=== PATIENT | male | born 1950 | race Caucasian/White ===

== ENCOUNTER 2017-12-16 17:41 | Emergency (ER) | payer MEDICARE ==
[2017-12-16 17:48] VITALS: PULSE 71
[2017-12-16] MEDS ORDERED: Sodium Chloride 0.9% 1000 ML 1,000 ML IV STA (17:55)
[2017-12-16] MEDS ORDERED: Sodium Chloride 0.9% 1000 ML 1,000 ML ONE (18:01)
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
[2017-12-16 18:21] LABS: BASOPHIL % 0.4 % (0.0-0.4); Basophil (Absolute #) 0.04 (0-0.4); Eosinophil (Absolute #) 0.19 (0-0.5); Granulocyte Absolute (ANC) 7.24 (1.4-6.9); Granulocytes % 74.6 % (36.0-66.0); Hematocrit 44.4 % (42-50); Hemoglobin 15.3 gm/dl (12.5-18.0); Lymphocyte (Absolute #) 1.32 (1.0-4.6); Lymphocytes % 13.6 % (24.0-44.0); Mean Cell Volume 88.3 fl (78-100); Mean Corpuscular Hemoglobin 30.4 pg (26-32); Mean Corpuscular Hgb Concent. 34.5 g/dl (32-36); Mean Platelet Volume 10.4 fl (6-9.5); Monocyte (Absolute #) 0.91 (0.0-1.3); Monocytes % 9.4 % (0.0-12.0); Platelet Count 155 K/mm3 (150-450); Red Blood Count 5.03 M/mm3 (4.1-5.6); Red Cell Distribution Width 12.4 % (11.5-14.0); White Blood Count 9.7 K/mm3 (4.0-10.5)
[2017-12-16 18:32] LABS: Appearance CLEAR (CLEAR); Bilirubin NEGATIVE (NEGATIVE); Blood 50 Ery/ul (0-5); Glucose 250 mg/dL (NEGATIVE); Ketones NEGATIVE (NEGATIVE); Leukocyte Esterase NEGATIVE (NEGATIVE); Nitrite NEGATIVE (NEGATIVE); Protein,Urine Dip NEGATIVE (Negative); Specific Gravity 1.015 (1.005-1.025); Urobilinogen NORMAL mg/dL (0-1)
[2017-12-16 18:33] LABS: RBC 0-2 /HPF (0-2); WBC 0-2 /HPF (0-5)
[2017-12-16] MEDS ORDERED: TYLENOL 325 MG PO STA (18:42)
[2017-12-16 18:43] LABS: ALBUMIN 4.3 g/dL (3.5-5.0); ALKALINE PHOSPHATASE 53 U/L (38-126); ANION GAP 13.7 MEQ/L (5-15); BLOOD UREA NITROGEN 16 mg/dL (9-20); CHLORIDE 105 mmol/L (98-107); Calcium 9.1 mg/dL (8.4-10.2); Carbon Dioxide 24 mmol/L (22-30); Glucose 211 mg/dL (74-106); LIPASE 153 U/L (23-300); SGOT/AST 25 U/L (17-59); SGPT/ALT 28 U/L (0-50); SODIUM 138 mmol/L (137-145); Total Protein 7.1 g/dL (6.3-8.2)
[2017-12-16] MEDS ORDERED: TYLENOL 325 MG ONE (18:44)
[2017-12-16 21:44] VITALS: BP 155/103; O2SAT 94
[2017-12-16] MEDS ORDERED: NORCO 5/325 MG PO ONE (22:55)
[2017-12-16] MEDS ORDERED: NORCO 5/325 MG ONE (23:00)
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
== END 2017-12-16 23:25 | disposition home or self-care (01) ==
LOC: ED 17:41
DX: S52.612A Displaced fracture of left ulna styloid process, initial encounter for closed fracture (principal); S00.01XA Abrasion of scalp, initial encounter; S60.812A Abrasion of left wrist, initial encounter; S80.01XA Contusion of right knee, initial encounter; S70.311A Abrasion, right thigh, initial encounter; S40.212A Abrasion of left shoulder, initial encounter; V09.9XXA Pedestrian injured in unspecified transport accident, initial encounter; Y93.H2 Activity, gardening and landscaping; Y92.007 Garden or yard of unspecified non-institutional (private) residence as the place of occurrence of the external cause; Z79.01 Long term (current) use of anticoagulants; Z79.899 Other long term (current) drug therapy
CPT/HCPCS: 36000; 36415; 70450; 71260; 72125; 73030; 73110; 73552; 74177; 76376; 80053; 81000; 83690; 84484; 85025; 93005; 96360; 99285; 99291; 99292; L3908; A9270-GY

== ENCOUNTER 2023-05-27 21:19 | Observation (INO) | payer MEDICARE ==
--- NOTE | 2023-05-27 21:22 | ERPHSYRPT ---
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 Patient spouse states that he was showing signs of dementia prior to the stroke 2 weeks ago. Patient has multiple medical problem including hypertension, insulin- dependent diabetes, coronary artery disease with cardiac stents on Plavix and has had multiple strokes in the past. He also has a history of peripheral vascular disease having had carotid artery bypass in the past. Patient recently returned home after suffering a CVA in [place] approximately 2 weeks ago. Malachi morris's spouse provided independent, additional, primary history because the patient is somewhat confused. Patient is awake and alert. However is confused about dates and times and recent family/personal historical events. Patient's states that this patient is becoming more aggressive and more confused since he has been home from [place]. Patient is not recalling how to provide himself with his nighttime insulin dosing. He has been eating what is put before him. Patient denies headache. Patient denies chest pain. Patient denies shortness of breath. He has no abdominal pain. Timing/Duration: today Severity: moderate Character of Deficits: other (Patient intermittently more confused and agitated with his spouse) Baseline/Normal Cognition: alert but confused Current Cognition: alert but confused Baseline Gait: walks w/o assistance Associated Symptoms: confusion, other Allergies/Adverse Reactions: Lnxewql-UBO-BoP Reductase Inhibitor [Pxvnhva-Hcn-Wsp Reductase Inhibitor] Aller gy (Severe, Verified 12/16/17 18:03) Rash Home Medications: Aspirin EC 325 mg [Ecotrin 325 MG] 325 mg PO DAILY 04/25/13 [History] Carvedilol [Coreg 6.25 MG] 6.25 mg PO BID 04/25/13 [History] Famotidine 20 mg [Pepcid 20 MG] 20 mg PO DAILY 04/25/13 [History] Insulin Detemir [Levemir] 15 unit SQ HS 04/25/13 [History] Sennosides/Docusate Sodium [Senokot-S Tablet] 1 each PO BIDPRN PRN 04/25/13 [History] lisinopriL [Zestril] 2.5 mg PO DAILY 04/25/13 [History] Empagliflozin [Jardiance] 10 mg PO DAILY 05/27/23 [History] Spironolactone 25 mg [Aldactone 25 MG] 25 mg PO DAILY 05/27/23 [History] Hx Tetanus, Diphtheria Vaccination/Date Given: Yes Hx Influenza Vaccination/Date Given: No Hx Pneumococcal Vaccination/Date Given: No Travel Risk - International Travel Have you traveled outside of the country in past 3 weeks: No - Coronavirus Screening Are you exhibiting any of the following symptoms?: No Close contact with a COVID-19 positive Pt in past 14-21 Days: No - Review of Systems Constitutional: No Symptoms Eyes: No Symptoms Ears, Nose, & Throat: No Symptoms Respiratory: No Symptoms Cardiac: No Symptoms Abdominal/Gastrointestinal: No Symptoms Genitourinary Symptoms: No Symptoms Musculoskeletal: No Symptoms Skin: No Symptoms Neurological: Other (Confused) Psychological: No Symptoms Endocrine: No Symptoms Hematologic/Lymphatic: No Symptoms Immunological/Allergic: No Symptoms All Other Systems: Reviewed and Negative - Past Medical History Pertinent Past Medical History: Yes Neurological History: Peripheral Neuropathy, Stroke ENT History: No Pertinent History Cardiac History: Angina, Coronary Artery Disease, High Cholesterol, Hypertension, Myocardial Infarction (AR) Respiratory History: Asthma Endocrine Medical History: Diabetes Type II Musculoskeletal History: Arthritis, Fractures GI Medical History: No Pertinent History History: No Pertinent History Psycho-Social History: No Pertinent History Male Reproductive Disorders: No Pertinent History Other Medical History: R TKA, 3 stints. 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) Significant Family History: no pertinent family hx - Nursing Vital Signs Nursing Vital Signs: Initial Vital Signs Temperature 97.6 F 05/27/23 21:36 Pulse Rate 77 05/27/23 21:36 Respiratory Rate 18 05/27/23 21:36 Blood Pressure 164/87 05/27/23 21:36 O2 Sat by Pulse Oximetry 98 05/27/23 21:36 Pain Scale Pain Intensity 0 - [place] Coma Scale Best Eye Response ([place]): (4) open spontaneously Best Verbal Response ([place]): (4) confused conversation Best Motor Response ([place]): (6) obeys commands Dmitri Total: 14 - Physical Exam General Appearance: no apparent distress, alert, anxiety Eye Exam: bilateral eye: normal inspection, PERRL, EOMI Ears, Nose, Throat Exam: normal ENT inspection, moist mucous membranes Neck Exam: normal inspection, non-tender, supple, full range of motion Respiratory: normal breath sounds, lungs clear, airway intact, No chest tenderness, No respiratory distress Cardiovascular: regular rate/rhythm, normal heart sounds, normal peripheral pulses Gastrointestinal: soft, normal bowel sounds, No tenderness Rectal Exam: not done Back Exam: normal inspection, normal range of motion, No CVA tenderness, No ve rtebral tenderness Extremity Exam: normal inspection, normal range of motion, pelvis stable Mental Status: alert, cooperative, disoriented to place, 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 Exam: normal hearing, normal speech, PERRL, tongue midline Coordination/Gait: normal finger to nose, normal gait, normal cerebellar function Motor/Sensory: no motor deficit, no sensory deficit, no pronator drift Skin Exam: normal color, warm, dry SpO2 Interpretation: normal O2 Delivery: Room Air - Course Nursing assessment & vital signs reviewed: Yes Ordered Tests: Active Orders 24 hr Category Date Time Status Director Targeted Marketing STAT Care 05/27/23 22:22 Active EKG-ER Only STAT Care 05/27/23 22:21 Active NPO (ED) STAT Care 05/27/23 22:21 Active Pulse Oximetry (ED) STAT Care 05/27/23 22:21 Active HEAD WITHOUT CONTRAST [CT] Stat Exams 05/27/23 22:21 Completed CBC W DIFF Stat Lab 05/27/23 22:23 Completed CMP Stat Lab 05/27/23 22:23 Completed POCT GLUCOSE Stat Lab 05/27/23 21:36 Completed PROTIME WITH INR Stat Lab 05/27/23 22:23 Completed UA W/RFX UR CULTURE Stat Lab 05/27/23 22:23 Completed Lab/Rad Data: Laboratory Result Diagrams 05/27/23 22:23 05/27/23 22:23 Laboratory Results 05/27/23 05/27/23 05/27/23 Range/Units 22:23 22:23 22:23 WBC 7.1 (4.0-10.5) x10^3/uL RBC 4.97 (4.1-5.6) x10^6/uL Hgb 15.1 (12.5-18.0) g/dL Hct 44.9 (42-50) % MCV 90.3 (78-100) fL MCH 30.4 (26-32) pg MCHC 33.6 (32-36) g/dL RDW 11.9 (11.5-14.0) % Plt Count 214 (150-450) x10^3/uL MPV 11.4 H (7.5-11.0) fL Gran % 67.6 H (36.0-66.0) % Immature Gran % (Auto) 0.3 (0.00-0.4) % Nucleat RBC Rel Count 0.0 (0.00-0.1) % Eos # (Auto) 0.10 (0-0.5) x10^3/uL Immature Gran # (Auto) 0.02 (0.00-0.03) x10^3u/L Absolute Lymphs (auto) 1.43 (1.0-4.6) x10^3/uL Absolute Monos (auto) 0.71 (0.0-1.3) x10^3/uL Absolute Nucleated RBC 0.00 (0.00-0.01) x10^3u/L Lymphocytes % 20.1 L (24.0-44.0) % Monocytes % 10.0 (0.0-12.0) % Eosinophils % 1.4 (0.00-5.0) % Basophils % 0.6 (0.0-0.4) % Absolute Granulocytes 4.82 (1.4-6.9) x10^3/uL Basophils # 0.04 (0-0.4) x10^3/uL PT 11.3 (9.4-12.5) SECONDS INR 1.04 (0.8-3.0) Sodium 133 L (137-145) mmol/L Potassium 4.4 (3.5-5.1) mmol/L Chloride 102 (98-107) mmol/L Carbon Dioxide 26 (22-30) mmol/L Anion Gap 9.5 (5-15) MEQ/L BUN 18 (9-20) mg/dL Creatinine 0.91 (0.66-1.25) mg/dL Estimated GFR 88.4 ML/MIN Glucose 139 H (74-106) mg/dL POC Glucometer (74 to 106) mg/dL Calcium 9.4 (8.4-10.2) mg/dL Total Bilirubin 0.50 (0.2-1.3) mg/dL AST 29 (17-59) U/L ALT 25 (0-50) U/L Alkaline Phosphatase 60 (38-126) U/L Serum Total Protein 7.1 (6.3-8.2) g/dL Albumin 4.3 (3.5-5.0) g/dL Urine Color (Yellow) Urine Appearance (Clear) Urine pH (4.6-8.0) Ur Specific [place] (1.005-1.030) Urine Protein (Negative) Urine Glucose (UA) (Negative) mg/dL Urine Ketones (Negative) Urine Blood (Negative) Urine Nitrite (Negative) Urine Bilirubin (Negative) Urine Urobilinogen (0.2) mg/dL Ur Leukocyte Esterase (Negative) U Hyaline Cast (Auto) (0-2) /LPF Urine Microscopic RBC (0-5) /HPF Urine Microscopic WBC (0-5) /HPF Ur Epithelial Cells (None Seen) /HPF Urine Bacteria (None Seen) /HPF Urine Culture Reflexed (NO) 05/27/23 05/27/23 Range/Units 22:23 21:36 WBC (4.0-10.5) x10^3/uL RBC (4.1-5.6) x10^6/uL Hgb (12.5-18.0) g/dL Hct (42-50) % MCV (78-100) fL MCH (26-32) pg MCHC (32-36) g/dL RDW (11.5-14.0) % Plt Count (150-450) x10^3/uL MPV (7.5-11.0) fL Gran % (36.0-66.0) % Immature Gran % (Auto) (0.00-0.4) % Nucleat RBC Rel Count (0.00-0.1) % Eos # (Auto) (0-0.5) x10^3/uL Immature Gran # (Auto) (0.00-0.03) x10^3u/L Absolute Lymphs (auto) (1.0-4.6) x10^3/uL Absolute Monos (auto) (0.0-1.3) x10^3/uL Absolute Nucleated RBC (0.00-0.01) x10^3u/L Lymphocytes % (24.0-44.0) % Monocytes % (0.0-12.0) % Eosinophils % (0.00-5.0) % Basophils % (0.0-0.4) % Absolute Granulocytes (1.4-6.9) x10^3/uL Basophils # (0-0.4) x10^3/uL PT (9.4-12.5) SECONDS INR (0.8-3.0) Sodium (137-145) mmol/L Potassium (3.5-5.1) mmol/L Chloride (98-107) mmol/L Carbon Dioxide (22-30) mmol/L Anion Gap (5-15) MEQ/L BUN (9-20) mg/dL Creatinine (0.66-1.25) mg/dL Estimated GFR ML/MIN Glucose (74-106) mg/dL POC Glucometer 147 H (74 to 106) mg/dL Calcium (8.4-10.2) mg/dL Total Bilirubin (0.2-1.3) mg/dL AST (17-59) U/L ALT (0-50) U/L Alkaline Phosphatase (38-126) U/L Serum Total Protein (6.3-8.2) g/dL Albumin (3.5-5.0) g/dL Urine Color Yellow (Yellow) Urine Appearance Clear (Clear) Urine pH 5.5 (4.6-8.0) Ur Specific [place] >=1.030 A (1.005-1.030) Urine Protein Negative (Negative) Urine Glucose (UA) >=1000 A (Negative) mg/dL Urine Ketones Trace A (Negative) Urine Blood Negative (Negative) Urine Nitrite Negative (Negative) Urine Bilirubin Negative (Negative) Urine Urobilinogen 0.2 (0.2) mg/dL Ur Leukocyte Esterase Negative (Negative) U Hyaline Cast (Auto) NONE SEEN (0-2) /LPF Urine Microscopic RBC 0-2 (0-5) /HPF Urine Microscopic WBC 0-2 (0-5) /HPF Ur Epithelial Cells None Seen (None Seen) /HPF Urine Bacteria None Seen (None Seen) /HPF Urine Culture Reflexed NO (NO) - Progress Progress: re-examined Progress Note: 05/27/23 22:28 Patient's medical issue is 1 of moderate to high complexity. Level of complexity and the workup performed is based on review of the patient's past medical history, review of the patient's medication list, review of patient drug allergy list, history present illness and physical findings on examination. Workup in this patient includes CT scan of the head without contrast, CBC, CMP, urinalysis, twelve-lead EKG. 05/27/23 22:29 It appears to be this patient, if appropriate and accepted by the hospitalist, would benefit from being placed in observation after the workup reveals the patient is medically stable. The patient appears to me to need significant home health care or possibly short-term extended care facility secondary to post CVA symptoms. He does not appear to me to be in an acute state. I believe he needs several branches of rehab. 05/27/23 23:33 CT scan of the head without contrast was interpreted by the radiologist and I reviewed the impression. The impression states no acute infarction or intracranial hemorrhage. There is subacute/chronic infarction right frontal lobe and in the anterior limb of the internal capsule. 05/27/23 23:40 I interpreted the patient's laboratory data results. There is no evidence of any acute or emergent findings on his laboratory data results. I spoke with Dr. Roldan, the telehospitalist on this evening. He agrees to place the patient in observation for monitoring of this patient's vital signs, repeat labs in the morning and monitor his blood sugar values. In addition, we will obtain discharge planning for possible short or long-term extended-care facility placement versus possible home health care. Discussed with : Michael Counseled pt/family regarding: lab results, diagnosis Medical Desision Making - Independent Historian Additional History obtained from: Spouse - Diagnostic Testing Diagnostic test were ordered, analyzed, and reviewed by me: Yes Radiological Interpretation: Reviewed by me, Teleradiologist Report - Risk of complications The pt has a high risk of morbidity or mortality based on: Decision regarding hospitilization or escalation of hosp level of care - Departure Departure Disposition: Observation Clinical Impression: Ischemic stroke of frontal lobe, Confusion Condition: Stable Critical Care Time: No Referrals: ANGELIA LONGORIA MD [ACTIVE STAFF] - Follow up/PCP as directed
[2023-05-27 22:34] LABS: Absolute Neutrophil Ct (ANC) 4.82 x10^3/uL (1.4-6.9); BASOPHIL % 0.6 % (0.0-0.4); Basophil (Absolute #) 0.04 x10^3/uL (0-0.4); Eosinophil % 1.4 % (0.00-5.0); Hematocrit 44.9 % (42-50); Hemoglobin 15.1 g/dL (12.5-18.0); IMMATURE GRAN # 0.02 x10^3u/L (0.00-0.03); IMMATURE GRAN % 0.3 % (0.00-0.4); Lymphocyte (Absolute #) 1.43 x10^3/uL (1.0-4.6); Lymphocytes % 20.1 % (24.0-44.0); Mean Cell Volume 90.3 fL (78-100); Mean Corpuscular Hemoglobin 30.4 pg (26-32); Mean Corpuscular Hgb Concent. 33.6 g/dL (32-36); Mean Platelet Volume 11.4 fL (7.5-11.0); Monocyte (Absolute #) 0.71 x10^3/uL (0.0-1.3); Neutrophil % 67.6 % (36.0-66.0); Platelet Count 214 x10^3/uL (150-450); Red Blood Count 4.97 x10^6/uL (4.1-5.6); Red Cell Distribution Width 11.9 % (11.5-14.0); White Blood Count 7.1 x10^3/uL (4.0-10.5)
[2023-05-27 22:40] LABS: Appearance Clear (Clear); Bacteria None Seen /HPF (None Seen); Bilirubin Negative (Negative); Blood Negative (Negative); Epithelial Cells None Seen /HPF (None Seen); Glucose, Urine >=1000 mg/dL (Negative); Hyaline Casts NONE SEEN /LPF (0-2); Ketones Trace (Negative); Leukocyte Esterase Negative (Negative); Nitrite Negative (Negative); Ph 5.5 (4.6-8.0); Protein,Urine Dip Negative (Negative); RBC 0-2 /HPF (0-5); Specific Gravity >=1.030 (1.005-1.030); Urobilinogen 0.2 mg/dL (0.2); WBC 0-2 /HPF (0-5)
[2023-05-27 22:44] LABS: ADD URINE CULTURE? NO (NO)
[2023-05-27 22:47] LABS: ALBUMIN 4.3 g/dL (3.5-5.0); ANION GAP 9.5 MEQ/L (5-15); BILIRUBIN,TOTAL 0.5 mg/dL (0.2-1.3); Calcium 9.4 mg/dL (8.4-10.2); Creatinine 1 0.91 mg/dL (0.66-1.25); EST GLOMERULAR FILTRATION RATE 88.4 ML/MIN; INR 1.04 (0.8-3.0); PROTIME 11.3 SECONDS (9.4-12.5); Potassium 4.4 mmol/L (3.5-5.1); Total Protein 7.1 g/dL (6.3-8.2)
--- NOTE | 2023-05-27 23:27 | XRAY ---
CLINICAL HISTORY: Confusion TECHNIQUE: CT of the brain without IV contrast was performed in the axial plane with coronal and sagittal reconstructions. COMPARISON: None. FINDINGS: No acute infarct or intracranial hemorrhage. There is an area of hypodensity seen in the subcortical white matter of the right frontal lobe, in keeping with subacute/chronic infarct. Similar subacute/chronic infarct is seen in the anterior limb of internal capsule on the right side (2:34). Diffuse age-related cortical atrophy with volume loss of subcortical white matter and ex vacuo prominence of the ventricular system. Symmetric periventricular and subcortical white matter hypodensity is seen in both cerebral hemispheres, in keeping with chronic microangiopathic changes. Chronic encephalomalacic changes are seen in the right temporo parieto-occipital lobes with ex vacuo prominence of the temporal and occipital horns of the right lateral ventricle. No midline shift or mass effect. The brainstem is unremarkable. Posterior fossa is unremarkable. No calvarial fracture. No scalp hematoma. Bilateral mastoid air cells and paranasal sinuses are normally pneumatized. Left-sided deviated nasal septum and nasal spur is seen. IMPRESSION: 1. No acute infarct or intracranial hemorrhage. 2. Subacute/chronic infarct in the subcortical white matter of right frontal lobe and in the anterior limb of internal capsule. 3. Cortical atrophy with chronic microangiopathic changes in both cerebral hemispheres and chronic encephalomalacia in the right temporoparietal occipital lobes. Electronically Signed by: Dexter Guardado MD. (05/27/2023 23:23:07 EST)
[2023-05-28] MEDS ORDERED: TYLENOL 325 MG PO PRN (00:15)
[2023-05-28] MEDS ORDERED: Ativan 2 MG/1 ML VIAL IV PRN (00:15)
[2023-05-28] MEDS ORDERED: Zofran 4 MG/2 ML VIAL IV PRN (00:15)
[2023-05-28] MEDS ORDERED: HUMULIN R SQ PRN (00:15)
--- NOTE | 2023-05-28 01:06 | PCM.HP ---
History of Present Illness - Chief Complaint Chief Complaint: "My is too controlling" Date: 05/28/23 History of Present Illness: is a 73 year old male with h/o CAD, DM2, HTN, and prior CVA, who was brought in by after confusion from recent stroke. Note, history obtained from chart and ED physician, as patient is poor historian with distractability and lack of insight in to why brought in to hospital, and has already left to go home. Per patient, he was brought it because his was driving him crazy, too controlling, and kept trying to make him do things. Per history, patient was in [place] was had a stroke on 05/13/23. 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 Unclear if any lingering symptoms from stroke. But per report from , patient was confused, acting aggressively, refusing medications, argumentative. They had come back from [place] to try to get support back home in [place], but could not wait any longer to get more help. During my interview, the patient was tangential, with poor recent recall, although was pleasant throughout. - Review of Systems Constitutional: No Symptoms Eyes: No Symptoms Ears, Nose, & Throat: No Symptoms Respiratory: No Symptoms Cardiac: No Symptoms Abdominal/Gastrointestinal: No Symptoms Genitourinary Symptoms: No Symptoms Musculoskeletal: No Symptoms Skin: No Symptoms Neurological: No Symptoms Psychological: No Symptoms Additional Findings: Patient denied all symptoms, but appeared to perhaps not be truly answering the questions due to cognitive impairment from recent stroke. Medications & Allergies Home Medications: Home Medication List Aspirin EC 325 mg [Ecotrin 325 MG] 325 mg PO DAILY 04/25/13 [History Confirmed 05/27/23] Carvedilol [Coreg 6.25 MG] 6.25 mg PO BID 04/25/13 [History Confirmed 05/27/23] Famotidine 20 mg [Pepcid 20 MG] 20 mg PO DAILY 04/25/13 [History Confirmed 05/27/23] Insulin Detemir [Levemir] 15 unit SQ HS 04/25/13 [History Confirmed 05/27/23] Sennosides/Docusate Sodium [Senokot-S Tablet] 1 each PO BIDPRN PRN 04/25/13 [History Confirmed 05/27/23] lisinopriL [Zestril] 2.5 mg PO DAILY 04/25/13 [History Confirmed 05/27/23] Empagliflozin [Jardiance] 10 mg PO DAILY 05/27/23 [History Confirmed 05/27/23] Spironolactone 25 mg [Aldactone 25 MG] 25 mg PO DAILY 05/27/23 [History Confirmed 05/27/23] Allergies/Adverse Reactions: Allergies Allergy/AdvReac Type Severity Reaction Status Date / Time Jziamir-ZGH-LqX Reductase Allergy Severe Rash Verified 12/16/17 18:03 Inhibitor [Qxqnecd-Ter-Hrg Reductase Inhibitor] - Past Medical History Past Medical History: Yes Neurological History: Peripheral Neuropathy, Stroke ENT History: No Pertinent History Cardiac History: Angina, Coronary Artery Disease, High Cholesterol, Hypertension, Myocardial Infarction (PA) Respiratory History: Asthma Endocrine Medical History: Diabetes Type II Musculoskelatal History: Arthritis, Fractures GI Medical History: No Pertinent History History: No Pertinent History Pyscho-Social History: No Pertinent History Male Reproductive Disorders: No Pertinent History Comment: R TKA, 3 stints. Additional printed hx in chart - Past Surgical History Past Surgical History: Yes (carotid bypass) Neuro Surgical History: No Pertinent History Cardiac History: Cardiac Stent Respiratory Surgery: No Pertinent History GI Surgical History: No Pertinent History Genitourinary Surgical Hx: No Pertinent History Musculskeletal Surgical Hx: Orthopedic Surgery Male Surgical History: No Pertinent History Other Surgical History: - R knee - carotid bypass - Social History Smoking Status: Never smoker Exposure to second hand smoke: No Alcohol: Rarely Drug Use: none Significant Family History: no pertinent family hx - Physical Exam Vital Signs: Vital Signs - 24 hr Temp Pulse Resp BP BP Pulse Ox 05/27/23 23:00 80 17 158/79 93 L 05/27/23 22:38 89 17 148/82 95 05/27/23 22:22 97 05/27/23 22:00 77 20 158/88 96 05/27/23 21:36 97.6 F 77 18 164/87 98 General Appearance: no apparent distress Neurologic Exam: alert, oriented x 3, disoriented, confusion, other (tangential speech, distractable. Mildly pressured speech, but no flights of fancy or paranoia.), No agitation, No facial droop, No dysarthria, No abnormal health care / medical job titles II-XII Eye Exam: PERRL/EOMI Respiratory Exam: normal breath sounds, lungs clear, No respiratory distress Cardiovascular Exam: regular rate/rhythm, normal heart sounds, No edema Gastrointestinal/Abdomen Exam: soft, normal bowel sounds, No tenderness, No distention Results - Labs Lab/Micro Results: Lab Results-Last 24 Hours 05/27/23 05/27/23 05/27/23 Range/Units 21:36 22:23 22:23 WBC 7.1 (4.0-10.5) x10^3/uL RBC 4.97 (4.1-5.6) x10^6/uL Hgb 15.1 (12.5-18.0) g/dL Hct 44.9 (42-50) % MCV 90.3 (78-100) fL MCH 30.4 (26-32) pg MCHC 33.6 (32-36) g/dL RDW 11.9 (11.5-14.0) % Plt Count 214 (150-450) x10^3/uL MPV 11.4 H (7.5-11.0) fL Gran % 67.6 H (36.0-66.0) % Immature Gran % (Auto) 0.3 (0.00-0.4) % Nucleat RBC Rel Count 0.0 (0.00-0.1) % Eos # (Auto) 0.10 (0-0.5) x10^3/uL Immature Gran # (Auto) 0.02 (0.00-0.03) x10^3u/L Absolute Lymphs (auto) 1.43 (1.0-4.6) x10^3/uL Absolute Monos (auto) 0.71 (0.0-1.3) x10^3/uL Absolute Nucleated RBC 0.00 (0.00-0.01) x10^3u/L Lymphocytes % 20.1 L (24.0-44.0) % Monocytes % 10.0 (0.0-12.0) % Eosinophils % 1.4 (0.00-5.0) % Basophils % 0.6 (0.0-0.4) % Absolute Granulocytes 4.82 (1.4-6.9) x10^3/uL Basophils # 0.04 (0-0.4) x10^3/uL PT (9.4-12.5) SECONDS INR (0.8-3.0) Sodium (137-145) mmol/L Potassium (3.5-5.1) mmol/L Chloride (98-107) mmol/L Carbon Dioxide (22-30) mmol/L Anion Gap (5-15) MEQ/L BUN (9-20) mg/dL Creatinine (0.66-1.25) mg/dL Estimated GFR ML/MIN Glucose (74-106) mg/dL POC Glucometer 147 H (74 to 106) mg/dL Calcium (8.4-10.2) mg/dL Total Bilirubin (0.2-1.3) mg/dL AST (17-59) U/L ALT (0-50) U/L Alkaline Phosphatase (38-126) U/L Serum Total Protein (6.3-8.2) g/dL Albumin (3.5-5.0) g/dL Urine Color Yellow (Yellow) Urine Appearance Clear (Clear) Urine pH 5.5 (4.6-8.0) Ur Specific [place] >=1.030 A (1.005-1.030) Urine Protein Negative (Negative) Urine Glucose (UA) >=1000 A (Negative) mg/dL Urine Ketones Trace A (Negative) Urine Blood Negative (Negative) Urine Nitrite Negative (Negative) Urine Bilirubin Negative (Negative) Urine Urobilinogen 0.2 (0.2) mg/dL Ur Leukocyte Esterase Negative (Negative) U Hyaline Cast (Auto) NONE SEEN (0-2) /LPF Urine Microscopic RBC 0-2 (0-5) /HPF Urine Microscopic WBC 0-2 (0-5) /HPF Ur Epithelial Cells None Seen (None Seen) /HPF Urine Bacteria None Seen (None Seen) /HPF Urine Culture Reflexed NO (NO) 05/27/23 05/27/23 Range/Units 22:23 22:23 WBC (4.0-10.5) x10^3/uL RBC (4.1-5.6) x10^6/uL Hgb (12.5-18.0) g/dL Hct (42-50) % MCV (78-100) fL MCH (26-32) pg MCHC (32-36) g/dL RDW (11.5-14.0) % Plt Count (150-450) x10^3/uL MPV (7.5-11.0) fL Gran % (36.0-66.0) % Immature Gran % (Auto) (0.00-0.4) % Nucleat RBC Rel Count (0.00-0.1) % Eos # (Auto) (0-0.5) x10^3/uL Immature Gran # (Auto) (0.00-0.03) x10^3u/L Absolute Lymphs (auto) (1.0-4.6) x10^3/uL Absolute Monos (auto) (0.0-1.3) x10^3/uL Absolute Nucleated RBC (0.00-0.01) x10^3u/L Lymphocytes % (24.0-44.0) % Monocytes % (0.0-12.0) % Eosinophils % (0.00-5.0) % Basophils % (0.0-0.4) % Absolute Granulocytes (1.4-6.9) x10^3/uL Basophils # (0-0.4) x10^3/uL PT 11.3 (9.4-12.5) SECONDS INR 1.04 (0.8-3.0) Sodium 133 L (137-145) mmol/L Potassium 4.4 (3.5-5.1) mmol/L Chloride 102 (98-107) mmol/L Carbon Dioxide 26 (22-30) mmol/L Anion Gap 9.5 (5-15) MEQ/L BUN 18 (9-20) mg/dL Creatinine 0.91 (0.66-1.25) mg/dL Estimated GFR 88.4 ML/MIN Glucose 139 H (74-106) mg/dL POC Glucometer (74 to 106) mg/dL Calcium 9.4 (8.4-10.2) mg/dL Total Bilirubin 0.50 (0.2-1.3) mg/dL AST 29 (17-59) U/L ALT 25 (0-50) U/L Alkaline Phosphatase 60 (38-126) U/L Serum Total Protein 7.1 (6.3-8.2) g/dL Albumin 4.3 (3.5-5.0) g/dL Urine Color (Yellow) Urine Appearance (Clear) Urine pH (4.6-8.0) Ur Specific [place] (1.005-1.030) Urine Protein (Negative) Urine Glucose (UA) (Negative) mg/dL Urine Ketones (Negative) Urine Blood (Negative) Urine Nitrite (Negative) Urine Bilirubin (Negative) Urine Urobilinogen (0.2) mg/dL Ur Leukocyte Esterase (Negative) U Hyaline Cast (Auto) (0-2) /LPF Urine Microscopic RBC (0-5) /HPF Urine Microscopic WBC (0-5) /HPF Ur Epithelial Cells (None Seen) /HPF Urine Bacteria (None Seen) /HPF Urine Culture Reflexed (NO) - Radiology Impressions Radiology Exams & Impressions: Radiology Procedures Category Date Time Status HEAD WITHOUT CONTRAST [CT] Stat Exams 05/27/23 22:[address] Head Subacute/chronic infarct in the subcortical white matter of right frontal lobe and in the anterior limb of internal capsule. Also had encephalomalacia along right temporoparietooccipital lobes, suggesting earlier infarcts. Assessment/Plan (1) Ischemic stroke of frontal lobe Current Visit: Yes Status: Acute Assessment & Plan: 73 y/o M with h/o DM2, CAD, HTN, likely recurrent stroke, here with sequelae from right frontal lobe stroke. ## Right frontal lobe stroke - no acute signs or symptoms, no obvious motor or sensory defect but appears that patient has had a severe cognitive change, and likely defects in executive functioning, since his stroke two weeks ago. Now transported back home from [place], but due to his cognitive impairment, has been too difficult to manage at home by . - home ASA 325 - not on statin due to allergy - consult PT/OT - will need CM consult, as will need placement vs extensive support at home ## DM2 - on linsulin at home. Glycosuria on initial UA, but patient is on Jardiance. - lantus 15 units qHS - moderate dose sliding scale insulin - cont home Jardiance 10 daily as well ## Hypertension - BP controlled. - continue Coreg 6.25 BID, lisinopril 2.5 daily, Aldactone 25 ## CAD - reported prior stents. Unclear if any cardiomyopathy, although patient is on appropriate GDMT for HFrEF, but appears euvolemic. - continue ASA, BB as above - not on statin due to allergy Code status: Full code Prophylaxis: Ambulate Diet: Diabetic Code(s): I63.9 - CEREBRAL INFARCTION, UNSPECIFIED Telemedicine Encounter - Telemedicine Encounter Telemedicine Encounter: The entirety of this encounter was performed via Telemedicine"
[2023-05-28] MEDS: Sodium Chloride 0.9% 1000 ML 1,000 ML IV SCH (01:36)
[2023-05-28 04:58] LABS: BASOPHIL % 0.7 % (0.0-0.4); Basophil (Absolute #) 0.04 x10^3/uL (0-0.4); Eosinophil % 1.7 % (0.00-5.0); Hematocrit 41.3 % (42-50); Hemoglobin 13.8 g/dL (12.5-18.0); IMMATURE GRAN # 0.02 x10^3u/L (0.00-0.03); IMMATURE GRAN % 0.3 % (0.00-0.4); Lymphocyte (Absolute #) 1.52 x10^3/uL (1.0-4.6); Lymphocytes % 25.3 % (24.0-44.0); Mean Cell Volume 89.4 fL (78-100); Mean Corpuscular Hemoglobin 29.9 pg (26-32); Mean Corpuscular Hgb Concent. 33.4 g/dL (32-36); Mean Platelet Volume 10.4 fL (7.5-11.0); Monocyte (Absolute #) 0.63 x10^3/uL (0.0-1.3); Monocytes % 10.5 % (0.0-12.0); Neutrophil % 61.5 % (36.0-66.0); Platelet Count 188 x10^3/uL (150-450); Red Blood Count 4.62 x10^6/uL (4.1-5.6); Red Cell Distribution Width 11.9 % (11.5-14.0)
[2023-05-28 05:10] LABS: ALBUMIN 3.7 g/dL (3.5-5.0); ANION GAP 5.3 MEQ/L (5-15); BILIRUBIN,TOTAL 0.4 mg/dL (0.2-1.3); Calcium 9.1 mg/dL (8.4-10.2); Creatinine 1 0.85 mg/dL (0.66-1.25); EST GLOMERULAR FILTRATION RATE 91.2 ML/MIN; Potassium 4.2 mmol/L (3.5-5.1); Total Protein 6.3 g/dL (6.3-8.2)
[2023-05-28] MEDS: Ecotrin 325 MG PO SCH (10:29)
[2023-05-28] MEDS: JARDIANCE PO SCH (10:29)
[2023-05-28] MEDS: Zestril 5 MG PO SCH (10:29)
[2023-05-28] MEDS: Aldactone 25 MG PO SCH (10:29)
[2023-05-28] MEDS: Pepcid 20 MG PO SCH (10:29)
[2023-05-28] MEDS: Coreg PO SCH (10:29)
--- NOTE | 2023-05-28 17:05 | XRAY ---
Indication: Stroke. Multi slab 3-D [id number] MRA [place] performed. Comparison: None Visualized distal internal carotid arteries are bilaterally symmetric without critical stenosis or obstruction. Normal carotid terminus with normal branching A1 and M1 segments bilaterally. Posterior circulation demonstrates normal MRA appearance to the basilar, left/right superior cerebellar, and left posterior cerebral arteries. Nonvisualization right posterior cerebral artery presumed occluded. Impression: Nonvisualization right posterior cerebral artery presumed occluded. Remaining MRA [place] is negative.
--- NOTE | 2023-05-28 17:21 | XRAY ---
Indication: Stroke. Sagittal, coronal, and axial MRI brain performed without contrast using T1, T2, FLAIR, diffusion, and ADC sequences. Comparison: None Age-appropriate global atrophy and moderate periventricular degenerative micro-ischemia signal bilaterally. Deep right temporal lobe and occipital lobe demonstrates large focus of old infarct with surrounding gliosis. Diffusion images negative for restricted signal. No acute intracranial hemorrhage, hydrocephalus, or mass effect. Basal ganglia demonstrates prominent Virchow-Kelby spaces. Fourth ventricle is midline. 7/8 cranial nerve complex bilaterally symmetric. Normal flow void signal within the major intracerebral circulation. Normal appearing craniocervical junction and sella turcica. Paranasal sinuses are clear. Impression: 1. Atrophy and degenerative micro-ischemia within normal limits. 2. Old right temporal occipital infarct. 3. Remaining MRI brain is negative for acute intracranial abnormalities or evidence for evolving large vessel territorial stroke.
[2023-05-28] MEDS: LIPITOR 40MG PO STA (17:57)
[2023-05-28] MEDS: PLAVIX Tablet PO SCH (17:57)
[2023-05-28] MEDS: PATIENT OWN MEDICATION OP SCH (17:58)
--- NOTE | 2023-05-28 18:25 | XRAY ---
Indication: Stroke. Multi slab 3-D [id number] MRA neck performed without contrast. Comparison: None Study is limited due to lack of contrast and motion artifact. Visualized right carotid circulation demonstrates moderate arteriosclerotic plaquing carotid bulb extending into the internal carotid artery. Suspect high-grade 99% stenosis origin internal carotid artery. More distal internal carotid artery is normal in course and caliber. Visualized left carotid circulation demonstrates normal MRA appearance to the common carotid, carotid bulb, internal carotid, and external carotid arteries. Visualized vertebral arteries are bilaterally symmetric in size. Occlusion distal right vertebral artery. Normal MRA appearance to left vertebral and basilar arteries. Impression: 1. Limited MRA exam. 2. Moderate plaquing right carotid bulb and origin internal carotid artery with high-grade 99% stenosis origin internal carotid artery. 3. Visualized left carotid circulation negative for critical stenosis/obstruction. 4. Vertebral basilar system demonstrates occlusion distal right vertebral artery.
[2023-05-28 18:52] LABS: Risk Ratio 3.3; TSH, 3RD Generation 0.677 mIU/L (0.47-4.68)
[2023-05-28] MEDS: Lantus Insulin SQ SCH (22:00)
[2023-05-29 04:52] LABS: Absolute Neutrophil Ct (ANC) 5.98 x10^3/uL (1.4-6.9); BASOPHIL % 0.8 % (0.0-0.4); Basophil (Absolute #) 0.06 x10^3/uL (0-0.4); Eosinophil (Absolute #) 0.08 x10^3/uL (0-0.5); Hemoglobin 16.4 g/dL (12.5-18.0); IMMATURE GRAN # 0.03 x10^3u/L (0.00-0.03); IMMATURE GRAN % 0.4 % (0.00-0.4); Lymphocytes % 15.1 % (24.0-44.0); Mean Cell Volume 91.4 fL (78-100); Mean Corpuscular Hgb Concent. 32.8 g/dL (32-36); Mean Platelet Volume 9.9 fL (7.5-11.0); Monocyte (Absolute #) 0.61 x10^3/uL (0.0-1.3); Monocytes % 7.7 % (0.0-12.0); Platelet Count 228 x10^3/uL (150-450); Red Blood Count 5.47 x10^6/uL (4.1-5.6); Red Cell Distribution Width 11.8 % (11.5-14.0)
[2023-05-29 05:17] LABS: ALBUMIN 4.7 g/dL (3.5-5.0); ANION GAP 10.5 MEQ/L (5-15); BILIRUBIN,TOTAL 0.8 mg/dL (0.2-1.3); Calcium 9.5 mg/dL (8.4-10.2); Creatinine 1 0.87 mg/dL (0.66-1.25); EST GLOMERULAR FILTRATION RATE 90.5 ML/MIN
--- NOTE | 2023-05-29 05:33 | PCM.NOTE ---
Date and Time: 05/29/23523 Subjective Assessment: Mr. Shetty is a 73 year old male who presented to ED 05/28/23 with behavior changes following a stroke from two weeks ago. According to his spouse, while in [place] (where they live division [employer]) patient (who has some baseline dementia) hit his head on the car and started experiencing behaviour changes subsequently. Spouse was finally able to talk the patient into going to ED where he was found to have a stroke. Patient has become unmanageable at home, decided to bring patient back to [facility] for evaluation. Imaging has been reviewed from previous facility including MRI, CT, ECHO, and it appears patient has new infarct to the right frontal lobe. Neurology has been consulted, further imaging with MRI/MRA head/neck has been ordered as well as ECHO/cards consult as this may cardioembolic. Patient may need NATASHA which is not available at this facility. Patient has been started on ASA/Plavix. 05/29: Met with patient bedside. Remains tangential. Discussed plan for cardiology and neurology consults today. Denies fever,cough, sob, cp, abdominal pain, HENSON, dizziness, N/V/D. OBJECTIVE DATA Vital Signs: Vital Signs - 24 hr Temp Pulse Resp BP Pulse Ox 05/29/23 04:00 97.9 F 55 L 18 139/78 96 05/29/23 00:01 68 05/29/23 00:00 98.5 F 67 15 145/75 96 05/28/23 20:00 65 05/28/23 19:49 80 20 138/77 97 05/28/23 16:00 65 16 161/79 98 05/28/23 11:11 97.4 F 72 16 149/77 97 05/28/23 07:11 97.9 F 75 16 171/89 96 Pain Assessment - Last Documented Pain Intensity 0 Intake and Output: Intake & Output 05/26/23 05/27/23 05/28/23 05/29/23 11:59 11:59 11:59 11:59 Output Total 250 Balance -250 Weight 71 kg Lab Results: Lab Results-Last 24 Hours 05/28/23 05/28/23 05/28/23 Range/Units 04:47 04:47 04:47 WBC (4.0-10.5) x10^3/uL RBC (4.1-5.6) x10^6/uL Hgb (12.5-18.0) g/dL Hct (42-50) % MCV (78-100) fL MCH (26-32) pg MCHC (32-36) g/dL RDW (11.5-14.0) % Plt Count (150-450) x10^3/uL MPV (7.5-11.0) fL Gran % (36.0-66.0) % Immature Gran % (Auto) (0.00-0.4) % Nucleat RBC Rel Count (0.00-0.1) % Eos # (Auto) (0-0.5) x10^3/uL Immature Gran # (Auto) (0.00-0.03) x10^3u/L Absolute Lymphs (auto) (1.0-4.6) x10^3/uL Absolute Monos (auto) (0.0-1.3) x10^3/uL Absolute Nucleated RBC (0.00-0.01) x10^3u/L Lymphocytes % (24.0-44.0) % Monocytes % (0.0-12.0) % Eosinophils % (0.00-5.0) % Basophils % (0.0-0.4) % Absolute Granulocytes (1.4-6.9) x10^3/uL Basophils # (0-0.4) x10^3/uL POC Glucometer (74 to 106) mg/dL Hemoglobin A1c 6.91 H (4.5-6.0) % Triglycerides 99 (30-150) mg/dL Cholesterol 116 (50-200) mg/dL LDL Cholesterol 61 (30-100) mg/dL HDL Cholesterol 36 L (40-60) mg/dL Heart Disease Risk Ratio 3.3 Free T4 1.02 (0.78-2.19) ng/dL TSH 3rd Generation 0.677 (0.47-4.68) mIU/L 05/28/23 05/28/23 05/28/23 Range/Units 07:22 11:24 17:34 WBC (4.0-10.5) x10^3/uL RBC (4.1-5.6) x10^6/uL Hgb (12.5-18.0) g/dL Hct (42-50) % MCV (78-100) fL MCH (26-32) pg MCHC (32-36) g/dL RDW (11.5-14.0) % Plt Count (150-450) x10^3/uL MPV (7.5-11.0) fL Gran % (36.0-66.0) % Immature Gran % (Auto) (0.00-0.4) % Nucleat RBC Rel Count (0.00-0.1) % Eos # (Auto) (0-0.5) x10^3/uL Immature Gran # (Auto) (0.00-0.03) x10^3u/L Absolute Lymphs (auto) (1.0-4.6) x10^3/uL Absolute Monos (auto) (0.0-1.3) x10^3/uL Absolute Nucleated RBC (0.00-0.01) x10^3u/L Lymphocytes % (24.0-44.0) % Monocytes % (0.0-12.0) % Eosinophils % (0.00-5.0) % Basophils % (0.0-0.4) % Absolute Granulocytes (1.4-6.9) x10^3/uL Basophils # (0-0.4) x10^3/uL POC Glucometer 119 H 146 H 98 (74 to 106) mg/dL Hemoglobin A1c (4.5-6.0) % Triglycerides (30-150) mg/dL Cholesterol (50-200) mg/dL LDL Cholesterol (30-100) mg/dL HDL Cholesterol (40-60) mg/dL Heart Disease Risk Ratio Free T4 (0.78-2.19) ng/dL TSH 3rd Generation (0.47-4.68) mIU/L 05/28/23 05/29/23 Range/Units 21:41 04:47 WBC 8.0 (4.0-10.5) x10^3/uL RBC 5.47 (4.1-5.6) x10^6/uL Hgb 16.4 (12.5-18.0) g/dL Hct 50.0 (42-50) % MCV 91.4 (78-100) fL MCH 30.0 (26-32) pg MCHC 32.8 (32-36) g/dL RDW 11.8 (11.5-14.0) % Plt Count 228 (150-450) x10^3/uL MPV 9.9 (7.5-11.0) fL Gran % 75.0 H (36.0-66.0) % Immature Gran % (Auto) 0.4 (0.00-0.4) % Nucleat RBC Rel Count 0.0 (0.00-0.1) % Eos # (Auto) 0.08 (0-0.5) x10^3/uL Immature Gran # (Auto) 0.03 (0.00-0.03) x10^3u/L Absolute Lymphs (auto) 1.20 (1.0-4.6) x10^3/uL Absolute Monos (auto) 0.61 (0.0-1.3) x10^3/uL Absolute Nucleated RBC 0.00 (0.00-0.01) x10^3u/L Lymphocytes % 15.1 L (24.0-44.0) % Monocytes % 7.7 (0.0-12.0) % Eosinophils % 1.0 (0.00-5.0) % Basophils % 0.8 (0.0-0.4) % Absolute Granulocytes 5.98 (1.4-6.9) x10^3/uL Basophils # 0.06 (0-0.4) x10^3/uL POC Glucometer 127 H (74 to 106) mg/dL Hemoglobin A1c (4.5-6.0) % Triglycerides (30-150) mg/dL Cholesterol (50-200) mg/dL LDL Cholesterol (30-100) mg/dL HDL Cholesterol (40-60) mg/dL Heart Disease Risk Ratio Free T4 (0.78-2.19) ng/dL TSH 3rd Generation (0.47-4.68) mIU/L Radiology Exams: Radiology Procedures Category Date Time Status ECHO W/2D AND DOPPLER [US] Routine Exams 05/29/23 10:00 Ordered HEAD WITHOUT CONTRAST [CT] Stat Exams 05/27/23 22:21 Completed MRA BRAIN WITHOUT CONTRAST [MRI] Routine Exams 05/28/23 15:58 Completed MRA NECK WITHOUT CONTRAST [MRI] Routine Exams 05/28/23 15:58 Completed MRI BRAIN W/O CONTRAST [MRI] Routine Exams 05/28/23 15:58 Completed Multi-Disciplinary Progress Notes: Multi-Disciplinary Progress Notes 05/28/23 18:47 OT Plan of Care Note by Sher(Lisa#[id number])Jodi OT Eval OT Inpatient Eval and POC Start: 05/28/23 00:59 Freq: ONCE Status: Complete Protocol: Created 05/28/23 01:00 KW (Rec: 05/28/23 01:00 KW -[id number]) Document 05/28/23 18:34 MJ (Rec: 05/28/23 18:47 MJ [id number]) OT Evaluation Subjective Patient is a 73 year old male brought to this ED on 05/27/23 by his who reported increased confusion and s/s of dementia prior to CVA on 05/13 while they were still in [place]. Per ED report, patient's reports increased aggressive and confused patient behaviors since returning home from [place]. Patient was pleasantly confused during OT evaluation and was a poor historian, often referring to to answer OTR questions. 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 Per who provides patient hx d/t confusion and poor history from patient, Mr. Shetty was independent with all self-care tasks and occasional driving before most recent CVA and exacerbation of confused and aggressive behaviors. Equipment at Home Prior to Admission None Date 05/28/23 Feeding WFL Comment setup Grooming WFL Comment setup Bathing WFL Comment SBA Dressing WFL Comment setup Toileting WFL Comment setup Bed Mobility WFL Toilet Transfers WFL Shower Transfers WFL Range of Motion WFL Comment BUE AROM Coordination BUE FMC and GMC intact Functional Strength BUE MMT: 4+/5 Cognition Alert to person and month Patient kept referring to being in [place] and explaining nearby facilities in [place]. He confirmed he was in [facility], but shortly after continued referring to [place]. Pain 0/10. Mr. Shetty denies pain. Objective Data/Standardized Assessment(s Jf Index of ADLs: 100/100 ) , indicative of 100% independence with ADLs Comment Patient is pleasantly confused this date without s/s of negative behaviors. Due to confusion, would benefit from supervision during I/ADLs at this time. OT Plan Of Care Date of Evaluation 05/28/23 Treatment Diagnosis Confusion Precaution/Orders as written Eval & Treat Teaching Recipient Patient,Significant Other Patient is Aware of Diagnosis and Yes Prognosis Patient is receptive to Plan of Care and Eval Only contributory towards OT goals Comment Patient is able to complete self-care tasks this date with setup and intermittent cuing for safety and orientation to place. Evaluation-only completed this date. Functional Problem List Confusion Therapuetic Interventions Evaluation Frequency/Duration Eval-Only Discharge Recommendations/Plan OTR recommends supervision during self-care tasks this date secondary to s/s of confusion and safety risk. Maintaining well-lit and decluttered walkways to reduce fall risk and visible visual cues for orientation to place and time. Initialized on 05/28/23 18:47 - END OF NOTE Assessment/Plan (1) Ischemic stroke of frontal lobe Current Visit: Yes Status: Acute Assessment & Plan: -Neurology consulted, plan for new MRI/MRA head/neck, echo -Plavix/ASA, unable to tolerate statin due to allergy -PT/OT -Cardiology consulted, may need NATASHA 05/29: -MRI brain showing "Atrophy and degenerative micro-ischemia within normal limits. Old right temporal occipital infarct. Remaining MRI brain is negative for acute intracranial abnormalities or evidence for evolving large vessel territorial stroke. " -CTA neck demonstrating "moderate plaquing right carotid bulb and origin internal carotid artery with high-grade 99% stenosis origin internal carotid artery.Visualized left carotid circulation negative for critical stenosis/obstruction.Vertebral basilar system demonstrates occlusion distal right vertebral artery." -Brain MRI/MRA noting "Nonvisualization right posterior cerebral artery presumed occluded. Remaining MRA [place] of [place] is negative. -Plan for cardiology consult today with neuro re-consulted for result review Code(s): I63.9 - CEREBRAL INFARCTION, UNSPECIFIED (2) Diabetes mellitus Current Visit: Yes Status: Acute Assessment & Plan: - lantus 15 units qHS - moderate dose sliding scale insulin - cont home Jardiance 10 daily as well -Consider metformin on discharge as insulin is a trigger for patient Code(s): E11.9 - TYPE 2 DIABETES MELLITUS WITHOUT COMPLICATIONS (3) Hypertension Current Visit: Yes Status: Acute Assessment & Plan: -Stable. - continue Coreg 6.25 BID, lisinopril 2.5 daily, Aldactone 25 Code(s): I10 - ESSENTIAL (PRIMARY) HYPERTENSION (4) CAD (coronary artery disease) Current Visit: Yes Status: Acute Assessment & Plan: CAD - reported prior stents. Unclear if any cardiomyopathy, although patient is on appropriate GDMT for HFrEF, but appears euvolemic. - continue ASA, BB as above - not on statin due to allergy Code status: Full code Prophylaxis: Ambulate Diet: Diabetic Code(s): I25.10 - ATHSCL HEART DISEASE OF [place] CORONARY ARTERY W/O ANG PCTRS
[2023-05-29 08:36] VITALS: RESP 16
[2023-05-29] MEDS: ECOTRIN 81 MG PO SCH (09:32)
[2023-05-29] MEDS: Senokot-S Tablet PO PRN (09:41)
[2023-05-29 11:52] VITALS: TEMP 97.9; O2SAT 97
--- NOTE | 2023-05-29 14:54 | XRAY ---
Indication: Confusion. Stroke. Two-dimensional sonogram and color Doppler imaging carotid arteries of the neck performed. Comparison: None Examination right carotid circulation demonstrates widely patent and slightly tortuous common carotid artery. Minimal heterogeneous plaquing carotid bulb extending into the proximal internal carotid and external carotid arteries. PSV CCA is 54 cm/s. PSV ICA is 57 cm/s. ICA/CCA ratio is 1.1. Normal antegrade vertebral artery flow. Examination left carotid circulation demonstrates widely patent common carotid artery. Mild calcified plaquing carotid bulb. This slightly extends into the origin/proximal internal carotid and lesser degree external carotid arteries. PSV CCA is 93 cm/s. PSV ICA is 66 cm/s. ICA/CCA ratio is 0.7. Normal antegrade vertebral artery flow. Impression: Minimal right and mild left carotid scattered arteriosclerotic plaquing as detailed. Velocity measurements and ratios are negative for hemodynamically significant flow-limiting stenosis.
--- NOTE | 2023-05-29 15:07 | PCM.DS ---
Discharge Summary Date of Admission: 05/27/23 23:56 Date of Discharge: 05/29/23 Admitting Physician: KAT RIVERA MD Consults: Consults on Case 05/28/23 09:17 Consult Neurology ROUTINE 05/28/23 15:05 Consult Cardiology ROUTINE 05/29/23 07:50 Consult Tele-Health [Tele-Health Consult] ROUTINE Primary Care Provider: AZIZA CELESTIN <JANINA HARRIS - Last Filed: 05/29/23 16:32> Date of Admission: 05/27/23 23:56 Admitting Physician: KAT RIVERA MD Consults: Consults on Case 05/28/23 09:17 Consult Neurology ROUTINE 05/28/23 15:05 Consult Cardiology ROUTINE 05/29/23 07:50 Consult Tele-Health [Tele-Health Consult] ROUTINE Primary Care Provider: AZIZA CELESTIN <AKHIL YEE - Last Filed: 05/29/23 22:05> Allergies <JANINA HARRIS - Last Filed: 05/29/23 16:32> <AKHIL YEE - Last Filed: 05/29/23 22:05> Allergies Baprwng-VUJ-FhW Reductase Inhibitor [Uhcpkdr-Via-Udq Reductase Inhibitor] Allergy (Severe, Verified 12/16/17 18:03) Rash Hospital Summary - Hospital Course Hospital Course: Mr. Shetty is a 73 year old male who presented to ED 05/28/23 with behavior changes following a stroke from two weeks ago. Imaging has been reviewed from previous facility including MRI, CT, ECHO, and it appears patient has new infarct to the right frontal lobe. Neurology has been consulted, further imaging with MRI/MRA head/neck showing "Atrophy and degenerative micro-ischemia within normal limits. Old right temporal occipital infarct. Remaining MRI brain is negative for acute intracranial abnormalities or evidence for evolving large vessel territorial stroke. " CTA neck demonstrating "moderate plaquing right carotid bulb and origin internal carotid artery with high-grade 99% stenosis origin internal carotid artery.Visualized left carotid circulation negative for critical stenosis/obstruction.Vertebral basilar system demonstrates occlusion distal right vertebral artery." Brain MRI/MRA noting "Nonvisualization right posterior cerebral artery presumed occluded. Remaining MRA [place] is negative. Cardiology recommending 14 day holter monitor as OP and follow up with Dr. Landry. We will place the monitor prior to discharge. Patient has been started on ASA/Plavix by neurology. Neurology appt made for follow up. Patient with allergy to statin, unable to initiate. Spouse having difficulty with patient allowing her to give insulin injection as he is suspicious she is "trying to give me the entire vial." A1c at 6.91, will send home on oral Metformin. Discharge Note New Diagnosis: CVA New Medications: Plavix/ASA Follow Up: PCP/ Cardiology/neurology Latest Assessment & Plan (1) Ischemic stroke of frontal lobe Current Visit: Yes Status: Acute Assessment & Plan: -Neurology consulted, plan for new MRI/MRA head/neck, echo -Plavix/ASA, unable to tolerate statin due to allergy -PT/OT -Cardiology consulted, may need NATASHA 05/29: -MRI brain showing "Atrophy and degenerative micro-ischemia within normal limits. Old right temporal occipital infarct. Remaining MRI brain is negative for acute intracranial abnormalities or evidence for evolving large vessel territorial stroke. " -CTA neck demonstrating "moderate plaquing right carotid bulb and origin internal carotid artery with high-grade 99% stenosis origin internal carotid artery.Visualized left carotid circulation negative for critical stenosis/obstruction.Vertebral basilar system demonstrates occlusion distal right vertebral artery." -Brain MRI/MRA noting "Nonvisualization right posterior cerebral artery presumed occluded. Remaining MRA [place] is negative. -Plan for cardiology consult today with neuro re-consulted for result review Code(s): I63.9 - CEREBRAL INFARCTION, UNSPECIFIED (2) Diabetes mellitus Current Visit: Yes Status: Acute Assessment & Plan: - lantus 15 units qHS - moderate dose sliding scale insulin - cont home Jardiance 10 daily as well -Consider metformin on discharge as insulin is a trigger for patient Code(s): E11.9 - TYPE 2 DIABETES MELLITUS WITHOUT COMPLICATIONS (3) Hypertension Current Visit: Yes Status: Acute Assessment & Plan: -Stable. - continue Coreg 6.25 BID, lisinopril 2.5 daily, Aldactone 25 Code(s): I10 - ESSENTIAL (PRIMARY) HYPERTENSION (4) CAD (coronary artery disease) Current Visit: Yes Status: Acute Assessment & Plan: CAD - reported prior stents. Unclear if any cardiomyopathy, although patient is on appropriate GDMT for HFrEF, but appears euvolemic. - continue ASA, BB as above - not on statin due to allergy I spent 35 minutes [id number] with the patient on the day of discharge performing discharge exam, discussing hospital stay and discharge instructions with patient and caregivers, preparation of discharge records, prescriptions & referral forms and addressing any questions/concerns the patient had as documented above. - Vitals & Intake/Output Vital Signs: Vital Signs Temperature 97.9 F 05/29/23 11:52 Pulse Rate 60 05/29/23 11:52 Respiratory Rate 16 05/29/23 11:52 Blood Pressure 137/74 05/29/23 11:52 O2 Sat by Pulse Oximetry 97 05/29/23 11:52 Intake & Output: Intake & Output 05/27/23 05/28/23 05/29/23 05/30/23 11:59 11:59 11:59 11:59 Intake Total 240 240 Output Total 250 Balance -250 240 240 Weight 71 kg - Lab Result Diagrams: 05/29/23 04:47 05/29/23 04:47 Lab Results-Last 24 Hrs: Lab Results-Last 24 Hours 05/28/23 05/28/23 05/28/23 Range/Units 04:47 04:47 04:47 WBC (4.0-10.5) x10^3/uL RBC (4.1-5.6) x10^6/uL Hgb (12.5-18.0) g/dL Hct (42-50) % MCV (78-100) fL MCH (26-32) pg MCHC (32-36) g/dL RDW (11.5-14.0) % Plt Count (150-450) x10^3/uL MPV (7.5-11.0) fL Gran % (36.0-66.0) % Immature Gran % (Auto) (0.00-0.4) % Nucleat RBC Rel Count (0.00-0.1) % Eos # (Auto) (0-0.5) x10^3/uL Immature Gran # (Auto) (0.00-0.03) x10^3u/L Absolute Lymphs (auto) (1.0-4.6) x10^3/uL Absolute Monos (auto) (0.0-1.3) x10^3/uL Absolute Nucleated RBC (0.00-0.01) x10^3u/L Lymphocytes % (24.0-44.0) % Monocytes % (0.0-12.0) % Eosinophils % (0.00-5.0) % Basophils % (0.0-0.4) % Absolute Granulocytes (1.4-6.9) x10^3/uL Basophils # (0-0.4) x10^3/uL Sodium (137-145) mmol/L Potassium (3.5-5.1) mmol/L Chloride (98-107) mmol/L Carbon Dioxide (22-30) mmol/L Anion Gap (5-15) MEQ/L BUN (9-20) mg/dL Creatinine (0.66-1.25) mg/dL Estimated GFR ML/MIN Glucose (74-106) mg/dL POC Glucometer (74 to 106) mg/dL Hemoglobin A1c 6.91 H (4.5-6.0) % Calcium (8.4-10.2) mg/dL Total Bilirubin (0.2-1.3) mg/dL AST (17-59) U/L ALT (0-50) U/L Alkaline Phosphatase (38-126) U/L Serum Total Protein (6.3-8.2) g/dL Albumin (3.5-5.0) g/dL Triglycerides 99 (30-150) mg/dL Cholesterol 116 (50-200) mg/dL LDL Cholesterol 61 (30-100) mg/dL HDL Cholesterol 36 L (40-60) mg/dL Heart Disease Risk Ratio 3.3 Free T4 1.02 (0.78-2.19) ng/dL TSH 3rd Generation 0.677 (0.47-4.68) mIU/L 05/28/23 05/28/23 05/29/23 Range/Units 17:34 21:41 04:47 WBC 8.0 (4.0-10.5) x10^3/uL RBC 5.47 (4.1-5.6) x10^6/uL Hgb 16.4 (12.5-18.0) g/dL Hct 50.0 (42-50) % MCV 91.4 (78-100) fL MCH 30.0 (26-32) pg MCHC 32.8 (32-36) g/dL RDW 11.8 (11.5-14.0) % Plt Count 228 (150-450) x10^3/uL MPV 9.9 (7.5-11.0) fL Gran % 75.0 H (36.0-66.0) % Immature Gran % (Auto) 0.4 (0.00-0.4) % Nucleat RBC Rel Count 0.0 (0.00-0.1) % Eos # (Auto) 0.08 (0-0.5) x10^3/uL Immature Gran # (Auto) 0.03 (0.00-0.03) x10^3u/L Absolute Lymphs (auto) 1.20 (1.0-4.6) x10^3/uL Absolute Monos (auto) 0.61 (0.0-1.3) x10^3/uL Absolute Nucleated RBC 0.00 (0.00-0.01) x10^3u/L Lymphocytes % 15.1 L (24.0-44.0) % Monocytes % 7.7 (0.0-12.0) % Eosinophils % 1.0 (0.00-5.0) % Basophils % 0.8 (0.0-0.4) % Absolute Granulocytes 5.98 (1.4-6.9) x10^3/uL Basophils # 0.06 (0-0.4) x10^3/uL Sodium (137-145) mmol/L Potassium (3.5-5.1) mmol/L Chloride (98-107) mmol/L Carbon Dioxide (22-30) mmol/L Anion Gap (5-15) MEQ/L BUN (9-20) mg/dL Creatinine (0.66-1.25) mg/dL Estimated GFR ML/MIN Glucose (74-106) mg/dL POC Glucometer 98 127 H (74 to 106) mg/dL Hemoglobin A1c (4.5-6.0) % Calcium (8.4-10.2) mg/dL Total Bilirubin (0.2-1.3) mg/dL AST (17-59) U/L ALT (0-50) U/L Alkaline Phosphatase (38-126) U/L Serum Total Protein (6.3-8.2) g/dL Albumin (3.5-5.0) g/dL Triglycerides (30-150) mg/dL Cholesterol (50-200) mg/dL LDL Cholesterol (30-100) mg/dL HDL Cholesterol (40-60) mg/dL Heart Disease Risk Ratio Free T4 (0.78-2.19) ng/dL TSH 3rd Generation (0.47-4.68) mIU/L 05/29/23 05/29/23 05/29/23 Range/Units 04:47 07:20 11:40 WBC (4.0-10.5) x10^3/uL RBC (4.1-5.6) x10^6/uL Hgb (12.5-18.0) g/dL Hct (42-50) % MCV (78-100) fL MCH (26-32) pg MCHC (32-36) g/dL RDW (11.5-14.0) % Plt Count (150-450) x10^3/uL MPV (7.5-11.0) fL Gran % (36.0-66.0) % Immature Gran % (Auto) (0.00-0.4) % Nucleat RBC Rel Count (0.00-0.1) % Eos # (Auto) (0-0.5) x10^3/uL Immature Gran # (Auto) (0.00-0.03) x10^3u/L Absolute Lymphs (auto) (1.0-4.6) x10^3/uL Absolute Monos (auto) (0.0-1.3) x10^3/uL Absolute Nucleated RBC (0.00-0.01) x10^3u/L Lymphocytes % (24.0-44.0) % Monocytes % (0.0-12.0) % Eosinophils % (0.00-5.0) % Basophils % (0.0-0.4) % Absolute Granulocytes (1.4-6.9) x10^3/uL Basophils # (0-0.4) x10^3/uL Sodium 133 L (137-145) mmol/L Potassium 4.0 (3.5-5.1) mmol/L Chloride 100 (98-107) mmol/L Carbon Dioxide 27 (22-30) mmol/L Anion Gap 10.5 (5-15) MEQ/L BUN 18 (9-20) mg/dL Creatinine 0.87 (0.66-1.25) mg/dL Estimated GFR 90.5 ML/MIN Glucose 227 H (74-106) mg/dL POC Glucometer 133 H 123 H (74 to 106) mg/dL Hemoglobin A1c (4.5-6.0) % Calcium 9.5 (8.4-10.2) mg/dL Total Bilirubin 0.80 (0.2-1.3) mg/dL AST 30 (17-59) U/L ALT 27 (0-50) U/L Alkaline Phosphatase 54 (38-126) U/L Serum Total Protein 8.0 (6.3-8.2) g/dL Albumin 4.7 (3.5-5.0) g/dL Triglycerides (30-150) mg/dL Cholesterol (50-200) mg/dL LDL Cholesterol (30-100) mg/dL HDL Cholesterol (40-60) mg/dL Heart Disease Risk Ratio Free T4 (0.78-2.19) ng/dL TSH 3rd Generation (0.47-4.68) mIU/L Micro Results-Entire Visit: Accuchecks Date 05/29/23 Date 05/28/23 Time 17:58 - Radiology Exams Ordered Rad Exams-Entire Visit: Radiology Procedures Category Date Time Status CAROTID BILATERAL [US] Urgent Exams 05/29/23 13:46 Completed ECHO W/2D AND DOPPLER [US] Routine Exams 05/29/23 10:00 Taken HEAD WITHOUT CONTRAST [CT] Stat Exams 05/27/23 22:21 Completed MRA BRAIN WITHOUT CONTRAST [MRI] Routine Exams 05/28/23 15:58 Completed MRA NECK WITHOUT CONTRAST [MRI] Routine Exams 05/28/23 15:58 Completed MRI BRAIN W/O CONTRAST [MRI] Routine Exams 05/28/23 15:58 Completed - Procedures and Test Procedures and Tests throughout Hospitalization: Therapy Orders & Screens 05/28/23 00:59 PT Eval & Treat ( Order) ONCE Reason for Eval:: stroke; eval & treat Diagnosis: Confusion OT Eval and Treat ( Order) ONCE Comment: Physician Instructions: Reason For Exam: Diagnosis: Confusion 05/28/23 01:21 ST Screen per Nursing Assess ONCE Comment: Protocol Order Physician Instructions: Greater than [address] Admission Screening Reason For Exam: Triggered on Admission Diagnosis: "My is too controlling" CVA/Dyshpagia/Aphasia: Yes: recent Cognitive Deficits: Yes Dehydration/Nutrition Deficit: No Oral-Motor Difficulties: No Pneumonia: No Senior Care Resident: No Total Points: 8 05/28/23 16:04 EKG ROUTINE Comment: Diagnosis: "My is too controlling" <JANINA HARRIS - Last Filed: 05/29/23 16:32> - Vitals & Intake/Output Vital Signs: Vital Signs Temperature 97.9 F 05/29/23 15:43 Pulse Rate 63 05/29/23 15:43 Respiratory Rate 16 05/29/23 15:43 Blood Pressure 141/84 05/29/23 15:43 O2 Sat by Pulse Oximetry 97 05/29/23 15:43 Intake & Output: Intake & Output 05/27/23 05/28/23 05/29/23 05/30/23 11:59 11:59 11:59 11:59 Intake Total 240 480 Output Total 250 Balance -250 240 480 Weight 71 kg - Lab Result Diagrams: 05/29/23 04:47 05/29/23 04:47 Lab Results-Last 24 Hrs: Lab Results-Last 24 Hours 05/28/23 05/29/23 05/29/23 Range/Units 04:47 04:47 04:47 WBC 8.0 (4.0-10.5) x10^3/uL RBC 5.47 (4.1-5.6) x10^6/uL Hgb 16.4 (12.5-18.0) g/dL Hct 50.0 (42-50) % MCV 91.4 (78-100) fL MCH 30.0 (26-32) pg MCHC 32.8 (32-36) g/dL RDW 11.8 (11.5-14.0) % Plt Count 228 (150-450) x10^3/uL MPV 9.9 (7.5-11.0) fL Gran % 75.0 H (36.0-66.0) % Immature Gran % (Auto) 0.4 (0.00-0.4) % Nucleat RBC Rel Count 0.0 (0.00-0.1) % Eos # (Auto) 0.08 (0-0.5) x10^3/uL Immature Gran # (Auto) 0.03 (0.00-0.03) x10^3u/L Absolute Lymphs (auto) 1.20 (1.0-4.6) x10^3/uL Absolute Monos (auto) 0.61 (0.0-1.3) x10^3/uL Absolute Nucleated RBC 0.00 (0.00-0.01) x10^3u/L Lymphocytes % 15.1 L (24.0-44.0) % Monocytes % 7.7 (0.0-12.0) % Eosinophils % 1.0 (0.00-5.0) % Basophils % 0.8 (0.0-0.4) % Absolute Granulocytes 5.98 (1.4-6.9) x10^3/uL Basophils # 0.06 (0-0.4) x10^3/uL Sodium 133 L (137-145) mmol/L Potassium 4.0 (3.5-5.1) mmol/L Chloride 100 (98-107) mmol/L Carbon Dioxide 27 (22-30) mmol/L Anion Gap 10.5 (5-15) MEQ/L BUN 18 (9-20) mg/dL Creatinine 0.87 (0.66-1.25) mg/dL Estimated GFR 90.5 ML/MIN Glucose 227 H (74-106) mg/dL POC Glucometer (74 to 106) mg/dL Hemoglobin A1c 6.91 H (4.5-6.0) % Calcium 9.5 (8.4-10.2) mg/dL Total Bilirubin 0.80 (0.2-1.3) mg/dL AST 30 (17-59) U/L ALT 27 (0-50) U/L Alkaline Phosphatase 54 (38-126) U/L Serum Total Protein 8.0 (6.3-8.2) g/dL Albumin 4.7 (3.5-5.0) g/dL 05/29/23 05/29/23 05/29/23 Range/Units 07:20 11:40 16:30 WBC (4.0-10.5) x10^3/uL RBC (4.1-5.6) x10^6/uL Hgb (12.5-18.0) g/dL Hct (42-50) % MCV (78-100) fL MCH (26-32) pg MCHC (32-36) g/dL RDW (11.5-14.0) % Plt Count (150-450) x10^3/uL MPV (7.5-11.0) fL Gran % (36.0-66.0) % Immature Gran % (Auto) (0.00-0.4) % Nucleat RBC Rel Count (0.00-0.1) % Eos # (Auto) (0-0.5) x10^3/uL Immature Gran # (Auto) (0.00-0.03) x10^3u/L Absolute Lymphs (auto) (1.0-4.6) x10^3/uL Absolute Monos (auto) (0.0-1.3) x10^3/uL Absolute Nucleated RBC (0.00-0.01) x10^3u/L Lymphocytes % (24.0-44.0) % Monocytes % (0.0-12.0) % Eosinophils % (0.00-5.0) % Basophils % (0.0-0.4) % Absolute Granulocytes (1.4-6.9) x10^3/uL Basophils # (0-0.4) x10^3/uL Sodium (137-145) mmol/L Potassium (3.5-5.1) mmol/L Chloride (98-107) mmol/L Carbon Dioxide (22-30) mmol/L Anion Gap (5-15) MEQ/L BUN (9-20) mg/dL Creatinine (0.66-1.25) mg/dL Estimated GFR ML/MIN Glucose (74-106) mg/dL POC Glucometer 133 H 123 H 106 (74 to 106) mg/dL Hemoglobin A1c (4.5-6.0) % Calcium (8.4-10.2) mg/dL Total Bilirubin (0.2-1.3) mg/dL AST (17-59) U/L ALT (0-50) U/L Alkaline Phosphatase (38-126) U/L Serum Total Protein (6.3-8.2) g/dL Albumin (3.5-5.0) g/dL Micro Results-Entire Visit: Accuchecks Date 05/29/23 Date 05/29/23 - Radiology Exams Ordered Rad Exams-Entire Visit: Radiology Procedures Category Date Time Status CAROTID BILATERAL [US] Urgent Exams 05/29/23 13:46 Completed ECHO W/2D AND DOPPLER [US] Routine Exams 05/29/23 10:00 Taken HEAD WITHOUT CONTRAST [CT] Stat Exams 05/27/23 22:21 Completed MRA BRAIN WITHOUT CONTRAST [MRI] Routine Exams 05/28/23 15:58 Completed MRA NECK WITHOUT CONTRAST [MRI] Routine Exams 05/28/23 15:58 Completed MRI BRAIN W/O CONTRAST [MRI] Routine Exams 05/28/23 15:58 Completed - Procedures and Test Procedures and Tests throughout Hospitalization: Therapy Orders & Screens 05/28/23 00:59 PT Eval & Treat (MD Order) ONCE Reason for Eval:: stroke; eval & treat Diagnosis: Confusion OT Eval and Treat (MD Order) ONCE Comment: Physician Instructions: Reason For Exam: Diagnosis: Confusion 05/28/23 01:21 ST Screen per Nursing Assess ONCE Comment: Protocol Order Physician Instructions: Greater than [address] Admission Screening Reason For Exam: Triggered on Admission Diagnosis: "My is too controlling" CVA/Dyshpagia/Aphasia: Yes: recent Cognitive Deficits: Yes Dehydration/Nutrition Deficit: No Oral-Motor Difficulties: No Pneumonia: No Senior Care Resident: No Total Points: 8 05/28/23 16:04 EKG ROUTINE Comment: Diagnosis: "My is too controlling" 05/29/23 17:25 Bardy 7-14 Day Holter ONCE Comment: Diagnosis: cva, confusion <AKHIL YEE - Last Filed: 05/29/23 22:05> Discharge Exam General Appearance: no apparent distress Neurologic Exam: alert, oriented x 3, confusion, other (tangetial) Eye Exam: PERRL Ears, Nose, Throat Exam: normal ENT inspection Neck Exam: normal inspection Respiratory Exam: normal breath sounds, lungs clear Cardiovascular Exam: regular rate/rhythm, normal heart sounds Gastrointestinal/Abdomen Exam: soft, normal bowel sounds Male Genitalia Exam: deferred Rectal Exam: deferred Back Exam: normal inspection Extremity Exam: normal inspection Skin Exam: normal color <JANINA HARRIS - Last Filed: 05/29/23 16:32> Final Diagnosis/Problem List - Final Discharge Diagnosis/Problem (1) Ischemic stroke of frontal lobe Status: Acute Code(s): I63.9 - CEREBRAL INFARCTION, UNSPECIFIED (2) Diabetes mellitus Status: Acute Code(s): E11.9 - TYPE 2 DIABETES MELLITUS WITHOUT COMPLICATIONS (3) Hypertension Status: Acute Code(s): I10 - ESSENTIAL (PRIMARY) HYPERTENSION (4) CAD (coronary artery disease) Status: Acute Code(s): I25.10 - ATHSCL HEART DISEASE OF [place] CORONARY ARTERY W/O ANG PCTRS <JANINA HARRIS - Last Filed: 05/29/23 16:32> <JANINA HARRIS - Last Filed: 05/29/23 16:32> <AKHIL YEE - Last Filed: 05/29/23 22:05> - Discharge Disposition: Home, Self-Care Condition: Stable Prescriptions: New Aspirin EC 81 mg [Ecotrin 81 mg] 81 mg PO QAM 30 Days #30 tablet Metformin HCl 500 mg [Glucophage 500 MG] 500 mg PO BIDWM 30 Days #60 tablet Clopidogrel Bisulfate [PLAVIX Tablet] 75 mg PO DAILY 21 Days #21 tablet Continue Sennosides/Docusate Sodium [Senokot-S Tablet] 1 each PO BIDPRN PRN PRN Reason: pain lisinopriL [Zestril] 2.5 mg PO DAILY Famotidine 20 mg [Pepcid 20 MG] 20 mg PO DAILY Carvedilol [Coreg ] 6.25 mg PO BID Empagliflozin [Jardiance] 10 mg PO DAILY Spironolactone 25 mg [Aldactone 25 MG] 25 mg PO DAILY Rosuvastatin Calcium 20 mg PO DAILY Discontinued Insulin Detemir [Levemir] 15 unit SQ HS Aspirin EC 325 mg [Ecotrin 325 MG] 325 mg PO DAILY Instructions: Transient ischemic attack, Stroke (DC), Caring for someone with Alzheimer disease or dementia, Clopidogrel, Metformin Follow up with: AZIZA CELESTIN [Primary Care Provider] - 06/06/23 10:15 am NIKOLE LANDRY [CONSULTING PHYSICIAN] - 07/05/23 9:45 am (office will call for a sooner visit) ISBELL-AYERS,DAVID A., DO [NON-STAFF PHY W/O PRIVILEGES] - Office will call patient Forms: Discharge Instructions SARAH Encounter - SARAH Encounter Attestation SARAH Encounter Attestation: "KATELYNN Salamanca andyaniscussed pertinent aspects of their care with Janina Harris and agree with the history, physical exam (any modifications based on my personal exam will be noted below), assessment, and plan as outlined in original note. Please see immediately below for my summary of findings and additional assessment and plan along with any meaningful corrections/explanations to the Subjective/Objective portions of the SARAH note will be noted." My portion of the encounter took place via telemedicine. <AKHIL YEE - Last Filed: 05/29/23 22:05>
[2023-05-29 15:43] VITALS: BP 141/84; PULSE 63
[2023-06-05 06:08] LABS: Reverse T3 12.7 ng/dL (9.2-24.1)
[2023-06-05 10:13] LABS: T3/rT3 Ratio 5.9 (Not Estab)
--- NOTE | 2023-06-06 15:26 | ECHO ---
DATE OF PROCEDURE: 05/29/2023 CLINICAL INFORMATION: Stroke. The M-mode 2D, and Doppler echocardiogram including color flow Doppler shows the left ventricle is mildly dilated. There is mild concentric left ventricular hypertrophy present. There is severe hypokinesis of the septum and severe hypokinesis of left ventricular posterior wall. Left ventricular ejection fraction is estimated to be 20 to 25%. There is evidence of possible impaired left ventricular relaxation. The right ventricle is not well visualized. The left atrium is borderline dilated. The interatrial septum is intact. The right atrium is normal. The aortic valve opens well. It is trileaflet. It is sclerotic. There is mitral valve calcification. There is mild tricuspid regurgitation. The right ventricular systolic pressure is calculated to be 22 mm of [place]. The pulmonic valve is not well visualized. The aortic root is normal. There is no pericardial effusion present. IMPRESSION: 1) MODERATELY SEVERE LEFT VENTRICULAR SYSTOLIC DYSFUNCTION. 2) MILD LEFT VENTRICLE DILATATION. 3) MILD CONCENTRIC LEFT VENTRICULAR HYPERTROPHY. 4) NO THROMBUS IS NOTED. 5) BORDERLINE LEFT ATRIAL DILATATION. 6) MILD TRICUSPID REGURGITATION. 7) NORMAL RIGHT VENTRICULAR SYSTOLIC PRESSURE. 8) TRICUSPID VALVE ANNULAR CALCIFICATION.
--- NOTE | 2023-07-04 09:58 | HOLTER ---
DATE OF PROCEDURE: 05/27/2023 PROCEDURE: Extended Holter monitor report. REASON FOR EXAMINATION: Cardiac arrhythmia and coronary artery disease. DESCRIPTION OF PROCEDURE: The patient underwent extended Holter monitor for about 12 days 14 hours starting on 05/29/2023. The patient was predominantly in normal sinus rhythm with average rate of 71 beats/minute. The maximum rate was 123 beats/minute 06/10/2023 at 6:52 a.m. and the minimum rate was 48 beats/minute on 06/08/2023 at 4:50 a.m. There were frequent premature atrial ectopies, occasional atrial couplets and five episodes of 3 to 5 beat atrial runs noted. There was no evidence of any longer supraventricular tachyarrhythmia. There were occasional premature ventricular ectopies, rare ventricular couplets and three episodes of complex tachyarrhythmia most likely representing nonsustained ventricular tachycardia with the longest consisting of 23 beats with average of 112 beats/minute and the fastest 8 beats at rate of 122 beats/minute. There was no evidence of any long pauses or blocks noted. IMPRESSION: 1) NORMAL SINUS RHYTHM. 2) FREQUENT PAC'S, OCCASIONAL ATRIAL COUPLETS AND FIVE EPISODES OF 3 TO 5 BEAT ATRIAL RUNS. 3) OCCASIONAL PVC'S, RARE VENTRICULAR COUPLETS AND THREE EPISODES OF WHAT SEEMS TO BE NONSUSTAINED VENTRICULAR TACHYCARDIA MENTIONED ABOVE. Please correlate clinically.
== END 2023-05-29 17:45 | disposition home or self-care (01) ==
LOC: ED 21:19 → ICU 23:56
PROVIDERS: ADMIT Internal Medicine; ATTEND Internal Medicine
DX: I63.9 Cerebral infarction, unspecified (principal); E11.9 Type 2 diabetes mellitus without complications; I10 Essential (primary) hypertension; I25.10 Atherosclerotic heart disease of native coronary artery without angina pectoris; I65.29 Occlusion and stenosis of unspecified carotid artery; F01.50 Vascular dementia, unspecified severity, without behavioral disturbance, psychotic disturbance, mood disturbance, and anxiety; R93.0 Abnormal findings on diagnostic imaging of skull and head, not elsewhere classified; E78.5 Hyperlipidemia, unspecified; I25.2 Old myocardial infarction; Z86.73 Personal history of transient ischemic attack (TIA), and cerebral infarction without residual deficits; Z79.899 Other long term (current) drug therapy; Z20.828 Contact with and (suspected) exposure to other viral communicable diseases
CPT/HCPCS: 36415; 70450; 70544; 70547; 70551; 80053; 80061; 81001; 82947; 83036; 83721; 84439; 84443; 84480; 84482; 85025; 85610; 93005; 93041; 93246; 93268; 93306; 93880; 94760; 99284; Q3014; A9270-GY; G0378

== ENCOUNTER 2023-08-31 04:41 | Emergency (ER) | payer MEDICARE ==
[2023-08-31 04:55] VITALS: TEMP 97.5
[2023-08-31] MEDS: BABY ASPIRIN 81 MG CHEW PO ONE (05:16)
[2023-08-31 05:24] LABS: Absolute Neutrophil Ct (ANC) 3.47 x10^3/uL (1.4-6.9); BASOPHIL % 0.8 % (0.0-0.4); Basophil (Absolute #) 0.05 x10^3/uL (0-0.4); Eosinophil % 6.9 % (0.00-5.0); Eosinophil (Absolute #) 0.41 x10^3/uL (0-0.5); Hematocrit 39.9 % (42-50); Hemoglobin 13.3 g/dL (12.5-18.0); IMMATURE GRAN # 0.02 x10^3u/L (0.00-0.03); IMMATURE GRAN % 0.3 % (0.00-0.4); Lymphocyte (Absolute #) 1.21 x10^3/uL (1.0-4.6); Lymphocytes % 20.5 % (24.0-44.0); Mean Cell Volume 91.7 fL (78-100); Mean Corpuscular Hemoglobin 30.6 pg (26-32); Mean Corpuscular Hgb Concent. 33.3 g/dL (32-36); Mean Platelet Volume 10.5 fL (7.5-11.0); Monocyte (Absolute #) 0.74 x10^3/uL (0.0-1.3); Monocytes % 12.5 % (0.0-12.0); Platelet Count 153 x10^3/uL (150-450); Red Blood Count 4.35 x10^6/uL (4.1-5.6); Red Cell Distribution Width 12.5 % (11.5-14.0); White Blood Count 5.9 x10^3/uL (4.0-10.5)
--- NOTE | 2023-08-31 05:34 | ERPHSYRPT ---
- History of Present Illness Source: patient, family Patient Subjective Stated Complaint: pt woke up sweating and c/o L arm pain and took 1 nitro Triage Nursing Assessment: pt ambulatory to bed by self with steady gait, at bedside, pt alert and acting his normal self per , pt has hx of dementia, pt has no complaints at this time. per pt had 2 cardiac stents placed per Carlos henderson. 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) Activities at Onset: sleep Chest Pain Radiation: arm Modifying Factors: Improves With: nothing Nitro Today/Relief: 0.4 mg x 1 Aspirin Treatment Today: 325 mg x 1, provided by ED Associated Symptoms: denies symptoms Prior Chest Pain/Cardiac Workup: recently seen/treated (multiple coronary artery stents placed on 08/28/[address] Erick Henderson) Hx Tetanus, Diphtheria Vaccination/Date Given: Yes Hx Influenza Vaccination/Date Given: No Hx Pneumococcal Vaccination/Date Given: No Immunizations Up to Date: No <LUPIS DOMINGUEZ - Last Filed: 08/31/23 06:57> <JOSE ANGEL MORE - Last Filed: 08/31/23 10:19> - History of Present Illness Time Seen by Provider: 08/31/23 05:15 Physician History: 73yo m pmhx CAD on aspirin plavix presents by private vehicle for diaphoresis, left arm pain and chest pain. Pt is AxO x 1 on exam, reports this is baseline for him 2/2 dementia. Pt reports no cp or arm pain at time of exam, pt is not diaphoretic. Pt does endorse some pain in his left 4th and 5th fingertips but denies numbness/tingling. Pt had PCI w/ multiple coronary artery stents p laced by Dr Erick Henderson on 08/28/23 at [facility], denies any complications from procedure. Pt denies any sob, n/v/abdominal pain. Cath site bandage in place on left groin, no bleeding appreciated. (LUPIS DOMINGUEZ) Allergies/Adverse Reactions: Zofnglh-IKD-KjC Reductase Inhibitor [Ktdpdld-Iuy-Ipb Reductase Inhibitor] Allergy (Severe, Verified 08/31/23 04:44) Rash Home Medications: Carvedilol [Coreg ] 6.25 mg PO BID 04/25/13 [History] Famotidine 20 mg [Pepcid 20 MG] 20 mg PO DAILY 04/25/13 [History] Sennosides/Docusate Sodium [Senokot-S Tablet] 1 each PO BIDPRN PRN 04/25/13 [History] lisinopriL [Zestril] 5 mg PO DAILY 04/25/13 [History] Empagliflozin [Jardiance] 10 mg PO DAILY 05/27/23 [History] Spironolactone 25 mg [Aldactone 25 MG] 25 mg PO DAILY 05/27/23 [History] Rosuvastatin Calcium 20 mg PO DAILY 05/28/23 [History] Isosorbide Mononitrate 30 mg [Imdur 30 MG] 30 mg PO DAILY 08/31/23 [History] Travel Risk - International Travel Have you traveled outside of the country in past 3 weeks: No - Emerging Infectious Disease Are you exhibiting symptoms associated with any current EIDs: No <LUPIS DOMINGUEZ - Last Filed: 08/31/23 06:57> - Review of Systems Constitutional: Night Sweats Respiratory: No Symptoms Cardiac: Chest Pain Abdominal/Gastrointestinal: No Symptoms <LUPIS DOMINGUEZ - [place] Filed: 08/31/23 06:57> - Past Medical History Pertinent Past Medical History: Yes Neurological History: Peripheral Neuropathy, Stroke ENT History: No Pertinent History Cardiac History: Angina, Coronary Artery Disease, High Cholesterol, Hypertension, Myocardial Infarction (MS) Respiratory History: Asthma Endocrine Medical History: Diabetes Type II Musculoskeletal History: Arthritis, Fractures GI Medical History: No Pertinent History History: No Pertinent History Psycho-Social History: No Pertinent History Male Reproductive Disorders: No Pertinent History Other Medical History: R TKA,. Additional printed hx in chart - Past Surgical History Past Surgical History: Yes (carotid bypass) Neuro Surgical History: No Pertinent History Cardiac: Cardiac Catheterization, Cardiac Stent Respiratory: No Pertinent History Gastrointestinal: No Pertinent History Genitourinary: No Pertinent History Musculoskeletal: Orthopedic Surgery Male Surgical History: No Pertinent History Other Surgical History: - R knee - carotid bypass, multiple cardiac stents Significant Family History: no pertinent family hx - Social History Smoking Status: Never smoker Exposure to second hand smoke: No Drug Use: none 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) <LUPIS DOMINGUEZ - [place] Filed: 08/31/23 06:57> - Physical Exam General Appearance: no apparent distress, alert Respiratory Exam: normal breath sounds, lungs clear, airway intact, No chest tenderness, No respiratory distress, No diminished breath sounds Cardiovascular Exam: regular rate/rhythm, normal heart sounds, normal peripheral pulses Gastrointestinal/Abdomen Exam: soft, No tenderness, No distention Extremity Exam: other (left wrist bruise likely from prior IV insertion, no bleeding, nontender) Neurologic Exam: alert (AxO x 1 - alert to self only, tells factitious stories, speech is tangential ), cooperative, normal mood/affect, nml station & gait, sensation nml, confusion (baseline per ) Skin Exam: normal color, warm, dry SpO2 Interpretation: normal SpO2: 98 O2 Delivery: Room Air <LUPIS DOMINGUEZ Filed: 08/31/23 06:57> - Nursing Vital Signs Nursing Vital Signs: Initial Vital Signs Temperature 97.5 F 08/31/23 04:45 Pulse Rate 78 08/31/23 04:45 Respiratory Rate 18 08/31/23 04:45 Blood Pressure 186/98 08/31/23 04:45 O2 Sat by Pulse Oximetry 98 08/31/23 04:45 Pain Scale Pain Intensity 0 - Course EKG Interpreted by Me: RATE (68), Sinus Rhythm, Other (prolonged HI 211, non- specific ST changes, no obvious acute ischemia) <LUPIS DOMINGUEZ Filed: 08/31/23 06:57> Ordered Tests: Active Orders 24 hr Category Date Time Status CHEST 1 VIEW (PORTABLE) Stat Exams 08/31/23 05:14 Completed CBC W DIFF Stat Lab 08/31/23 05:21 Completed CMP Stat Lab 08/31/23 05:21 Completed Lactic Acid Stat Lab 08/31/23 05:30 Completed NT PRO BNPII Stat Lab 08/31/23 05:21 Completed PROTIME WITH INR Stat Lab 08/31/23 05:21 Completed PTT Stat Lab 08/31/23 05:21 Completed TROPONIN Q4H Lab 08/31/23 05:21 Completed TROPONIN Q4H Lab 08/31/23 09:15 Completed TROPONIN Q4H Lab 08/31/23 13:15 Ordered UA W/RFX UR CULTURE Stat Lab 08/31/23 06:01 Completed Medication Summary Discontinued Medications Generic Name Dose Route Start Last Admin Trade Name Freq PRN Reason Stop Dose Admin Aspirin 324 mg 08/31/23 05:13 08/31/23 05:16 Aspirin 81 Mg Tab.Chew PO 08/31/23 05:14 324 mg STAT ONE Administration Lab/Rad Data: Laboratory Result Diagrams 08/31/23 05:21 08/31/23 05:21 Laboratory Results 08/31/23 08/31/23 08/31/23 Range/Units 09:15 06:01 05:30 WBC (4.0-10.5) x10^3/uL RBC (4.1-5.6) x10^6/uL Hgb (12.5-18.0) g/dL Hct (42-50) % MCV (78-100) fL MCH (26-32) pg MCHC (32-36) g/dL RDW (11.5-14.0) % Plt Count (150-450) x10^3/uL MPV (7.5-11.0) fL Gran % (36.0-66.0) % Immature Gran % (Auto) (0.00-0.4) % Nucleat RBC Rel Count (0.00-0.1) % Eos # (Auto) (0-0.5) x10^3/uL Immature Gran # (Auto) (0.00-0.03) x10^3u/L Absolute Lymphs (auto) (1.0-4.6) x10^3/uL Absolute Monos (auto) (0.0-1.3) x10^3/uL Absolute Nucleated RBC (0.00-0.01) x10^3u/L Lymphocytes % (24.0-44.0) % Monocytes % (0.0-12.0) % Eosinophils % (0.00-5.0) % Basophils % (0.0-0.4) % Absolute Granulocytes (1.4-6.9) x10^3/uL Basophils # (0-0.4) x10^3/uL PT (9.4-12.5) SECONDS INR (0.8-3.0) APTT (25.1-36.5) SECONDS Sodium (135-145) mmol/L Potassium (3.5-5.1) mmol/L Chloride (98-107) mmol/L Carbon Dioxide (22-30) mmol/L Anion Gap (5-15) MEQ/L BUN (9-20) mg/dL Creatinine (0.66-1.25) mg/dL Estimated GFR ML/MIN Glucose (74-106) mg/dL Lactic Acid 0.8 (0.4-2.0) Calcium (8.4-10.2) mg/dL Total Bilirubin (0.2-1.3) mg/dL AST (17-59) U/L ALT (0-50) U/L Alkaline Phosphatase (38-126) U/L Troponin I 0.082 H* (0.000-0.033) ng/mL NT-Pro-B Natriuret Pep (<300) pg/mL Serum Total Protein (6.3-8.2) g/dL Albumin (3.5-5.0) g/dL Urine Color Yellow (Yellow) Urine Appearance Clear (Clear) Urine pH 5.5 (4.6-8.0) Ur Specific [place] 1.025 (1.005-1.030) Urine Protein Negative (Negative) Urine Glucose (UA) >=1000 A (Negative) mg/dL Urine Ketones Negative (Negative) Urine Blood Negative (Negative) Urine Nitrite Negative (Negative) Urine Bilirubin Negative (Negative) Urine Urobilinogen 0.2 (0.2) mg/dL Ur Leukocyte Esterase Negative (Negative) U Hyaline Cast (Auto) NONE SEEN (0-2) /LPF Urine Microscopic RBC 0-2 (0-5) /HPF Urine Microscopic WBC 0-2 (0-5) /HPF Ur Epithelial Cells None Seen (None Seen) /HPF Urine Bacteria None Seen (None Seen) /HPF Urine Culture Reflexed NO (NO) 08/31/23 08/31/23 08/31/23 Range/Units 05:21 05:21 05:21 WBC (4.0-10.5) x10^3/uL RBC (4.1-5.6) x10^6/uL Hgb (12.5-18.0) g/dL Hct (42-50) % MCV (78-100) fL MCH (26-32) pg MCHC (32-36) g/dL RDW (11.5-14.0) % Plt Count (150-450) x10^3/uL MPV (7.5-11.0) fL Gran % (36.0-66.0) % Immature Gran % (Auto) (0.00-0.4) % Nucleat RBC Rel Count (0.00-0.1) % Eos # (Auto) (0-0.5) x10^3/uL Immature Gran # (Auto) (0.00-0.03) x10^3u/L Absolute Lymphs (auto) (1.0-4.6) x10^3/uL Absolute Monos (auto) (0.0-1.3) x10^3/uL Absolute Nucleated RBC (0.00-0.01) x10^3u/L Lymphocytes % (24.0-44.0) % Monocytes % (0.0-12.0) % Eosinophils % (0.00-5.0) % Basophils % (0.0-0.4) % Absolute Granulocytes (1.4-6.9) x10^3/uL Basophils # (0-0.4) x10^3/uL PT 10.7 (9.4-12.5) SECONDS INR 0.98 (0.8-3.0) APTT 24.5 L (25.1-36.5) SECONDS Sodium 140 (135-145) mmol/L Potassium 4.2 (3.5-5.1) mmol/L Chloride 109 H (98-107) mmol/L Carbon Dioxide 24 (22-30) mmol/L Anion Gap 11.1 (5-15) MEQ/L BUN 22 H (9-20) mg/dL Creatinine 0.86 (0.66-1.25) mg/dL Estimated GFR 90.9 ML/MIN Glucose 123 H (74-106) mg/dL Lactic Acid (0.4-2.0) Calcium 9.2 (8.4-10.2) mg/dL Total Bilirubin 0.40 (0.2-1.3) mg/dL AST 24 (17-59) U/L ALT 24 (0-50) U/L Alkaline Phosphatase 44 (38-126) U/L Troponin I 0.084 H* (0.000-0.033) ng/mL NT-Pro-B Natriuret Pep 957 (<300) pg/mL Serum Total Protein 6.8 (6.3-8.2) g/dL Albumin 4.2 (3.5-5.0) g/dL Urine Color (Yellow) Urine Appearance (Clear) Urine pH (4.6-8.0) Ur Specific [place] (1.005-1.030) Urine Protein (Negative) Urine Glucose (UA) (Negative) mg/dL Urine Ketones (Negative) Urine Blood (Negative) Urine Nitrite (Negative) Urine Bilirubin (Negative) Urine Urobilinogen (0.2) mg/dL Ur Leukocyte Esterase (Negative) U Hyaline Cast (Auto) (0-2) /LPF Urine Microscopic RBC (0-5) /HPF Urine Microscopic WBC (0-5) /HPF Ur Epithelial Cells (None Seen) /HPF Urine Bacteria (None Seen) /HPF Urine Culture Reflexed (NO) 08/31/23 Range/Units 05:21 WBC 5.9 (4.0-10.5) x10^3/uL RBC 4.35 (4.1-5.6) x10^6/uL Hgb 13.3 (12.5-18.0) g/dL Hct 39.9 L (42-50) % MCV 91.7 (78-100) fL MCH 30.6 (26-32) pg MCHC 33.3 (32-36) g/dL RDW 12.5 (11.5-14.0) % Plt Count 153 (150-450) x10^3/uL MPV 10.5 (7.5-11.0) fL Gran % 59.0 (36.0-66.0) % Immature Gran % (Auto) 0.3 (0.00-0.4) % Nucleat RBC Rel Count 0.0 (0.00-0.1) % Eos # (Auto) 0.41 (0-0.5) x10^3/uL Immature Gran # (Auto) 0.02 (0.00-0.03) x10^3u/L Absolute Lymphs (auto) 1.21 (1.0-4.6) x10^3/uL Absolute Monos (auto) 0.74 (0.0-1.3) x10^3/uL Absolute Nucleated RBC 0.00 (0.00-0.01) x10^3u/L Lymphocytes % 20.5 L (24.0-44.0) % Monocytes % 12.5 H (0.0-12.0) % Eosinophils % 6.9 H (0.00-5.0) % Basophils % 0.8 (0.0-0.4) % Absolute Granulocytes 3.47 (1.4-6.9) x10^3/uL Basophils # 0.05 (0-0.4) x10^3/uL PT (9.4-12.5) SECONDS INR (0.8-3.0) APTT (25.1-36.5) SECONDS Sodium (135-145) mmol/L Potassium (3.5-5.1) mmol/L Chloride (98-107) mmol/L Carbon Dioxide (22-30) mmol/L Anion Gap (5-15) MEQ/L BUN (9-20) mg/dL Creatinine (0.66-1.25) mg/dL Estimated GFR ML/MIN Glucose (74-106) mg/dL Lactic Acid (0.4-2.0) Calcium (8.4-10.2) mg/dL Total Bilirubin (0.2-1.3) mg/dL AST (17-59) U/L ALT (0-50) U/L Alkaline Phosphatase (38-126) U/L Troponin I (0.000-0.033) ng/mL NT-Pro-B Natriuret Pep (<300) pg/mL Serum Total Protein (6.3-8.2) g/dL Albumin (3.5-5.0) g/dL Urine Color (Yellow) Urine Appearance (Clear) Urine pH (4.6-8.0) Ur Specific [place] (1.005-1.030) Urine Protein (Negative) Urine Glucose (UA) (Negative) mg/dL Urine Ketones (Negative) Urine Blood (Negative) Urine Nitrite (Negative) Urine Bilirubin (Negative) Urine Urobilinogen (0.2) mg/dL Ur Leukocyte Esterase (Negative) U Hyaline Cast (Auto) (0-2) /LPF Urine Microscopic RBC (0-5) /HPF Urine Microscopic WBC (0-5) /HPF Ur Epithelial Cells (None Seen) /HPF Urine Bacteria (None Seen) /HPF Urine Culture Reflexed (NO) - Progress Progress: improved Air Movement: good Blood Culture(s) Obtained: No Antibiotics given: No Counseled pt/family regarding: lab results, need for follow-up, rad results <LUPIS DOMINGUEZ - Last Filed: 08/31/23 06:57> <JOSE ANGEL MORE - Last Filed: 08/31/23 10:19> - Progress Progress Note: 08/31/23 06:57 patient has been asymptomatic while in ED Trop 0.08, repeat pending at 08:30 consider transfer to [place] for evaluation by cardiology I discussed pt case w/ Dr More who assumes care at this time (LUPIS DOMINGUEZ) 08/31/23 10:15 I interpreted the repeat troponin level on this patient. It is slightly improved. I believe the mildly elevated troponin level is based on his recent cardiac stent placement. The patient's symptoms have nearly completely resolved. I spoke with Dr. Yang, the hoist cylinder loader covering for Dr. Carlos Henderson who placed the recent cardiac stents. He states that the patient can be discharged to home. We will have the patient call his hoist cylinder loader office on 09/02/2023. Patient is instructed to return to the emergency department if symptoms recur (JOSE ANGEL MORE) Medical Desision Making - Diagnostic Testing Diagnostic test were ordered, analyzed, and reviewed by me: Yes Radiological Interpretation: Interpreted by me, Reviewed by me <LUPIS DOMINGUEZ - Last Filed: 08/31/23 06:57> - Independent Historian Additional History obtained from: Spouse - Diagnostic Testing Diagnostic test were ordered, analyzed, and reviewed by me: Yes - Risk of complications Low Risk: Low risk of morbidity from additional dx testing or treatment <JOSE ANGEL MORE - Last Filed: 08/31/23 10:19> - Departure Critical Care Time: No <LUPIS DOMINGUEZ - Last Filed: 08/31/23 06:57> <JOSE ANGEL MORE - Last Filed: 08/31/23 10:19> - Departure Clinical Impression: Diaphoresis, Left upper arm pain Condition: Stable Referrals: AZIZA CELESTIN [Primary Care Provider] - Follow up/PCP as directed Additional Instructions: Continue medications as prescribed. Call Dr. Henderson's office on 09/02/19, in the morning, and make them aware of your emergency room visit. If your symptoms recur, you can always come to this emergency department. However, you should also consider going directly to [facility] since this is where your hoist cylinder loader is and this facility does not have cardiology available to intervene.
[2023-08-31 05:38] LABS: ALBUMIN 4.2 g/dL (3.5-5.0); ANION GAP 11.1 MEQ/L (5-15); BILIRUBIN,TOTAL 0.4 mg/dL (0.2-1.3); Calcium 9.2 mg/dL (8.4-10.2); Creatinine 1 0.86 mg/dL (0.66-1.25); EST GLOMERULAR FILTRATION RATE 90.9 ML/MIN; Potassium 4.2 mmol/L (3.5-5.1); Total Protein 6.8 g/dL (6.3-8.2)
[2023-08-31 05:40] LABS: INR 0.98 (0.8-3.0); PROTIME 10.7 SECONDS (9.4-12.5); PTT 24.5 SECONDS (25.1-36.5)
[2023-08-31 06:14] LABS: TROPONIN 0.084 ng/mL (0.000-0.033)
--- NOTE | 2023-08-31 07:22 | XRAY ---
Indication: Chest pain. Comparison: April 25, 2013 Portable chest remains inflated and clear. Heart and mediastinal structures within normal limits. Bony thorax intact again with osteopenia. No new/acute findings.
[2023-08-31 08:14] LABS: Appearance Clear (Clear); Bacteria None Seen /HPF (None Seen); Bilirubin Negative (Negative); Blood Negative (Negative); Epithelial Cells None Seen /HPF (None Seen); Glucose, Urine >=1000 mg/dL (Negative); Hyaline Casts NONE SEEN /LPF (0-2); Ketones Negative (Negative); Leukocyte Esterase Negative (Negative); Nitrite Negative (Negative); Ph 5.5 (4.6-8.0); Protein,Urine Dip Negative (Negative); RBC 0-2 /HPF (0-5); Specific Gravity 1.025 (1.005-1.030); Urobilinogen 0.2 mg/dL (0.2); WBC 0-2 /HPF (0-5)
[2023-08-31 08:24] LABS: ADD URINE CULTURE? NO (NO)
[2023-08-31 10:07] VITALS: BP 164/117; PULSE 75; RESP 20; O2SAT 97
== END 2023-08-31 10:27 | disposition home or self-care (01) ==
LOC: ED 04:41
DX: R61 Generalized hyperhidrosis (principal); M79.622 Pain in left upper arm; R07.9 Chest pain, unspecified; E78.5 Hyperlipidemia, unspecified; I10 Essential (primary) hypertension; E11.42 Type 2 diabetes mellitus with diabetic polyneuropathy; Z79.02 Long term (current) use of antithrombotics/antiplatelets; Z79.84 Long term (current) use of oral hypoglycemic drugs; Z79.899 Other long term (current) drug therapy
CPT/HCPCS: 36415; 71045; 80053; 81001; 83605; 83880; 84484; 85025; 85610; 85730; 99284; A9270-GY